=== PATIENT | male | born 1985 | race Caucasian/White ===

== ENCOUNTER 2018-11-27 22:03 | Inpatient (IN) | payer MEDICARE, OTHER ==
[~2018-11-27] VITALS: Ht 165.1 cm; Wt 97.1 kg
[~2018-11-27 22:03] MED LIST: ACET500T68 PO; ARIP30TA4 PO; BENZ2TAB5 PO; CLON2TAB9 PO; DIVA-53 PO; GABA600T7 PO; LOXA10CA PO
[2018-11-27] MEDS ORDERED: IV NORMAL SALINE 1000ML BAG 1,000 ML IV ONE (22:30)
[2018-11-27] MEDS ORDERED: DIPHTH,PERTUSS(ACELL),TET TOX 0.5 ML DISP.SYRIN. VAX IM ONE (22:45)
[2018-11-27 22:55] LABS: BASO # 0.1 x10^3/uL (0.0-0.2); BASO % 0 % (0-3); EOS % 0 % (0-3); HEMATOCRIT 47.7 % (39.0-53.0); HEMOGLOBIN 15.8 g/dL (13.0-17.5); LYMPH # 1.3 x10^3/uL (1.0-4.8); LYMPH % 5 % (24-48); MEAN CORPUSCULAR HEMOGLOBIN 30 pg (25-35); MEAN CORPUSCULAR HGB CONC 33 g/dL (31-37); MEAN CORPUSCULAR VOLUME 89 fL (79-100); MONO # 1.5 x10^3/uL (0.0-1.1); MONO % 6 % (0-9); NEUT # 22.7 x10^3uL (1.8-7.7); NEUT % 89 % (31-73); PLATELET COUNT 289 x10^3/uL (140-400); RED BLOOD COUNT 5.33 x10^6/uL (4.30-5.70); RED CELL DISTRIBUTION WIDTH 13.6 % (11.5-14.5); WHITE BLOOD COUNT 25.6 x10^3/uL (4.0-11.0)
[2018-11-27 23:05] LABS: PROTHROMBIN TIME PATIENT 13.3 SEC (11.7-14.0)
[2018-11-27 23:08] LABS: CALCIUM 9.3 mg/dL (8.5-10.1); CREATININE 1.8 mg/dL (0.7-1.3); GFR 43.4; POTASSIUM 3.4 mmol/L (3.5-5.1)
[2018-11-27 23:15] LABS: % BANDS 11 % (0-9); % LYMPHS 6 % (24-48); % MONOS 2 % (0-10); % SEGS 81 % (35-66); PLT ESTIMATE ADEQUATE (ADEQUATE)
[2018-11-27 23:25] LABS: MAGNESIUM 2.4 mg/dL (1.8-2.4); TOTAL BILIRUBIN 0.7 mg/dL (0.2-1.0)
--- NOTE | 2018-11-27 23:34 | RAD ---
CT scan of the head without contrast 11/27/2018 Clinical History: Head trauma. Altered mental status. Technique: Unenhanced, contiguous, 5 mm axial sections were obtained through the head. One or more of the following individualized dose reduction techniques were utilized for this study: 1. Automated exposure control. 2. Adjustment of the mA and/or kV according to patient size. 3. Use of iterative reconstruction technique. Findings: The ventricles and sulci are within normal limits in size and configuration. No acute parenchymal abnormality is seen. No extra-axial fluid collection is noted. No skull fracture is seen. Impression: No acute intracranial abnormality is seen. CT scan of the cervical spine without contrast 11/27/2018 Clinical history: Neck injury. Technique: Unenhanced, contiguous, 0.625 mm axial sections were obtained through the cervical spine. Axial, coronal and sagittal reconstructed images were obtained. One or more of the following individualized dose reduction techniques were utilized for this study: 1. Automated exposure control. 2. Adjustment of the mA and/or kV according to patient size. 3. Use of iterative reconstruction technique. Findings: Sagittal and coronal reconstructed images demonstrate minimal lateral curvature of the cervical spine, convex to the left. There is straightening of the normal cervical lordosis. Degenerative changes consisting of disc space narrowing, vertebral endplate sclerosis and mild anterior vertebral body osteophyte formation are seen involving the C5-6 disc space. No fracture or subluxation of the cervical vertebrae is seen. Degenerative changes are seen involving the uncovertebral and facet joints bilaterally. Impression: No fracture or subluxation of the cervical vertebra is identified. Electronically signed by: Oswaldo Ortiz MD (11/27/2018 11:31 PM) [id number]
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
[2018-11-27 23:42] LABS: BILIRUBIN,URINE NEGATIVE (NEG); CLARITY,URINE CLEAR; COLOR,URINE YELLOW; NITRITE,URINE NEGATIVE (NEG); PROTEIN,URINE 100 mg/dL (NEG-TRACE); UROBILINOGEN,URINE 0.2 mg/dL (0.2 mg/dL)
[2018-11-27] MEDS ORDERED: ASPIRIN CHEWABLE 81 MG TABLET. PO ONE (23:45)
[2018-11-27 23:49] LABS: AMPHETAMINE/METHAMPHETAMINE NEG (NEG); BACTERIA,URINE 0 /HPF (0-FEW); BARBITURATES NEG (NEG); BENZODIAZEPINES POS (NEG); CANNABINOIDS NEG (NEG); COCAINE NEG (NEG); METHADONE NEG (NEG); OPIATES NEG (NEG); PHENCYCLIDINE NEG (NEG); SQUAMOUS EPITHELIAL CELL,UR MOD /LPF
[2018-11-27 23:50] LABS: AMORPHOUS SEDIMENT,UR PRESENT /HPF; HYALINE CASTS, URINE MODERATE /HPF
[2018-11-28] VITALS (25 sets, daily range): BP systolic 81–149; BP diastolic 49–94
[2018-11-28] MEDS ORDERED: PIPERACILLIN/TAZOBACTAM 3.375 GM in IV NORMAL SALINE 50ML 50 ML IV ONE (00:15)
--- NOTE | 2018-11-28 00:22 | RAD ---
EXAM: AP View of the chest DATE: 11/27/2018 10:51 PM INDICATION: Altered mental status COMPARISON: No Prior FINDINGS: The heart is not enlarged. Mediastinal and hilar contours are normal. No focal parenchymal airspace opacity. No pleural effusion or pneumothorax. IMPRESSION: 1. No evidence for acute cardiopulmonary process. Electronically signed by: Larry Shine MD (11/28/2018 12:19 AM) [facility]
[2018-11-28] MEDS ORDERED: PIP/TAZO PER PHARMACY MC PRN (01:15)
[2018-11-28] MEDS ORDERED: IV NORMAL SALINE 1000ML BAG 1,000 ML IV ONE ×2 (01:15)
[2018-11-28] MEDS ORDERED: AMLO10TA8 PO (02:51)
[2018-11-28] MEDS ORDERED: LURA80TA PO (02:51)
[2018-11-28] MEDS ORDERED: CLON0.5T11 PO (02:51)
[2018-11-28] MEDS ORDERED: GABA600T7 PO (02:51)
[2018-11-28] MEDS ORDERED: LISI-338 PO (02:51)
[2018-11-28] MEDS ORDERED: LORA0.5T PO (02:51)
[2018-11-28] MEDS ORDERED: CLON0.1T PO (02:54)
[2018-11-28] MEDS ORDERED: LACT20SO PO (02:54)
[2018-11-28 03:03] LABS: BASO # 0.2 x10^3/uL (0.0-0.2); BASO % 1 % (0-3); EOS % 0 % (0-3); HEMATOCRIT 44.2 % (39.0-53.0); LYMPH # 3.1 x10^3/uL (1.0-4.8); LYMPH % 15 % (24-48); MEAN CORPUSCULAR HEMOGLOBIN 29 pg (25-35); MEAN CORPUSCULAR HGB CONC 32 g/dL (31-37); MEAN CORPUSCULAR VOLUME 91 fL (79-100); MONO # 1.6 x10^3/uL (0.0-1.1); MONO % 8 % (0-9); NEUT # 15.1 x10^3uL (1.8-7.7); NEUT % 76 % (31-73); PLATELET COUNT 264 x10^3/uL (140-400); RED BLOOD COUNT 4.88 x10^6/uL (4.30-5.70); RED CELL DISTRIBUTION WIDTH 13.7 % (11.5-14.5); WHITE BLOOD COUNT 19.9 x10^3/uL (4.0-11.0)
--- NOTE | 2018-11-28 05:14 | EKG ---
[facility] [address] [place] [id number] Test Date: 2018-11-27 Test Time: 23:23:57 Pat Name: STEFF SCHAEFFER Department: Room: 102 1 Gender: M Real Estate Rental Agent: : [id number] Requested By: MELVIN KUMAR Order Number: [id number] Reading MD: Greyson Moore MD Measurements Intervals [place] Rate: 120 P: 111 OR: 136 QRS: 53 QRSD: 84 T: 54 QT: 300 QTc: 428 Interpretive Statements SINUS TACHYCARDIA Electronically Signed On 11-28-2018 9:24:58 CDT by Greyson Moore MD
[2018-11-28] MEDS: PIPERACILLIN/TAZOBACTAM 3.375 GM in IV NORMAL SALINE 50ML 50 ML IV SCH ×3 (06:34→18:27)
[2018-11-28] MEDS ORDERED: ZIPRASIDONE IM 20 MG VIAL. IM ONE (06:35)
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
[2018-11-28] MEDS ORDERED: VANCOMYCIN PER PHARMACY MC PRN (12:30)
[2018-11-28] MEDS ORDERED: IV NORMAL SALINE 500ML BAG 500 ML IV PRN (12:30)
[2018-11-28] MEDS ORDERED: NOREPINEPHRIN 8MG/250ML PREMIX 250 ML IV PRN (12:30)
[2018-11-28] MEDS ORDERED: VANCOMYCIN 2 GM in IV NORMAL SALINE 500ML BAG 500 ML IV ONE (13:00)
[2018-11-28 13:07] LABS: PROTHROMBIN TIME PATIENT 12.8 SEC (11.7-14.0)
[2018-11-28 13:25] LABS: FIBRINOGEN 325 mg/dL (200-440)
[2018-11-28 13:28] LABS: D-DIMER < 0.27 ug/mlFEU (0.00-0.50)
[2018-11-28] MEDS: LACTOBACILLUS RHAMNOSUS GG 1 CAPSULE. PO SCH ×2 (14:02→21:00)
[2018-11-28] MEDS: IV NORMAL SALINE 1000ML BAG 1,000 ML IV SCH ×2 (14:26→14:29)
--- NOTE | 2018-11-28 14:30 | PDOC ---
Infectious Disease Note Subjective: Subjective Pt seen and examined ROS: ROS Negative except for above. Vital Signs: Vital Signs Vital Signs Date Time Temp Pulse Resp B/P (MAP) Pulse Ox O2 Delivery O2 Flow Rate FiO2 11/28/18 14:00 101 14 114/69 (84) 98 Room Air 11/28/18 05:00 2.0 11/28/18 04:00 98.2 98.2 Medications: Inpatient Meds: Current Medications Medications (Trade) Dose Ordered Sig/Manuel Start Time Stop Time Status Last Admin Dose Admin Aspirin (Children'S Aspirin) 324 mg 1X ONCE 11/27/18 23:45 11/27/18 23:46 DC 11/28/18 00:00 324 MG Cefazolin Sodium 50 ml @ 100 mls/hr 1X ONCE 11/27/18 22:45 11/27/18 23:14 DC 11/28/18 00:04 100 MLS/HR Diphtheria/ Tetanus/Acell Pertussis (Boostrix) 0.5 ml ONCE ONCE 11/27/18 22:45 11/27/18 22:46 DC 11/28/18 00:01 0.5 ML Dobutamine HCl/ Dextrose 250 ml @ 0 mls/hr CONT PRN 11/28/18 12:30 Lactobacillus Rhamnosus (Culturelle) 1 cap BID 11/28/18 10:00 11/28/18 14:02 1 CAP Lorazepam (Ativan) 2 mg PRN Q4HRS PRN 11/27/18 23:45 11/28/18 09:47 2 MG Norepinephrine Bitartrate 250 ml @ 0 mls/hr CONT PRN 11/28/18 12:30 Piperacillin Sod/ Tazobactam Sod (Zosyn Per Pharmacy) 1 each PRN DAILY PRN 11/28/18 01:15 Piperacillin Sod/ Tazobactam Sod 3.375 gm/Sodium Chloride 50 ml @ 100 mls/hr Q6HRS 11/28/18 06:00 11/28/18 12:09 100 MLS/HR Sodium Chloride 500 ml @ 1,000 mls/hr PRN Q30MIN PRN 11/28/18 12:30 Vancomycin HCl (Vanco Per Pharmacy) 1 each PRN DAILY PRN 11/28/18 12:30 11/28/18 14:09 1 EACH Vancomycin HCl (Vancomycin Trough Level) 1 each 1X ONCE 11/29/18 13:30 11/29/18 13:31 Vancomycin HCl 1.5 gm/Sodium Chloride 500 ml @ 250 mls/hr Q12H 11/29/18 02:00 Vancomycin HCl 2 gm/Sodium Chloride 500 ml @ 250 mls/hr 1X ONCE 11/28/18 13:00 11/28/18 14:59 11/28/18 13:47 250 MLS/HR Ziprasidone (Geodon Im) 20 mg STK-MED ONCE 11/28/18 06:35 11/28/18 06:36 DC Labs: Lab Laboratory Tests Test 11/27/18 22:40 11/27/18 23:30 11/28/18 02:50 11/28/18 09:30 White Blood Count 25.6 x10^3/uL (4.0-11.0) 19.9 x10^3/uL (4.0-11.0) Red Blood Count 5.33 x10^6/uL (4.30-5.70) 4.88 x10^6/uL (4.30-5.70) Hemoglobin 15.8 g/dL (13.0-17.5) 14.0 g/dL (13.0-17.5) Hematocrit 47.7 % (39.0-53.0) 44.2 % (39.0-53.0) Mean Corpuscular Volume 89 fL (79-100) 91 fL (79-100) Mean Corpuscular Hemoglobin 30 pg (25-35) 29 pg (25-35) Mean Corpuscular Hemoglobin Concent 33 g/dL (31-37) 32 g/dL (31-37) Red Cell Distribution Width 13.6 % (11.5-14.5) 13.7 % (11.5-14.5) Platelet Count 289 x10^3/uL (140-400) 264 x10^3/uL (140-400) Neutrophils (%) (Auto) 89 % (31-73) 76 % (31-73) Lymphocytes (%) (Auto) 5 % (24-48) 15 % (24-48) Monocytes (%) (Auto) 6 % (0-9) 8 % (0-9) Eosinophils (%) (Auto) 0 % (0-3) 0 % (0-3) Basophils (%) (Auto) 0 % (0-3) 1 % (0-3) Neutrophils # (Auto) 22.7 x10^3uL (1.8-7.7) 15.1 x10^3uL (1.8-7.7) Lymphocytes # (Auto) 1.3 x10^3/uL (1.0-4.8) 3.1 x10^3/uL (1.0-4.8) Monocytes # (Auto) 1.5 x10^3/uL (0.0-1.1) 1.6 x10^3/uL (0.0-1.1) Eosinophils # (Auto) 0.0 x10^3/uL (0.0-0.7) 0.0 x10^3/uL (0.0-0.7) Basophils # (Auto) 0.1 x10^3/uL (0.0-0.2) 0.2 x10^3/uL (0.0-0.2) Segmented Neutrophils % 81 % (35-66) Band Neutrophils % 11 % (0-9) Lymphocytes % 6 % (24-48) Monocytes % 2 % (0-10) Platelet Estimate Adequate (ADEQUATE) Prothrombin Time 13.3 SEC (11.7-14.0) 12.8 SEC (11.7-14.0) Prothromb Time International Ratio 1.0 (0.8-1.1) 1.0 (0.8-1.1) Sodium Level 143 mmol/L (136-145) Potassium Level 3.4 mmol/L (3.5-5.1) Chloride Level 105 mmol/L (98-107) Carbon Dioxide Level 23 mmol/L (21-32) Anion Gap 15 (6-14) Blood Urea Nitrogen 18 mg/dL (8-26) Creatinine 1.8 mg/dL (0.7-1.3) Estimated GFR (Cockcroft-Gault) 43.4 BUN/Creatinine Ratio 10 (6-20) Glucose Level 168 mg/dL (70-99) Lactic Acid Level 4.4 mmol/L (0.4-2.0) 1.2 mmol/L (0.4-2.0) Calcium Level 9.3 mg/dL (8.5-10.1) Magnesium Level 2.4 mg/dL (1.8-2.4) Total Bilirubin 0.7 mg/dL (0.2-1.0) Aspartate Amino Transf (AST/SGOT) 20 U/L (15-37) Alanine Aminotransferase (ALT/SGPT) 28 U/L (16-63) Alkaline Phosphatase 61 U/L (46-116) Troponin I Quantitative 0.065 ng/mL (0.000-0.055) ZI-Ptp-G-Type Natriuretic Peptide 35 pg/mL (0-124) Total Protein 8.0 g/dL (6.4-8.2) Albumin 4.0 g/dL (3.4-5.0) Albumin/Globulin Ratio 1.0 (1.0-1.7) Ethyl Alcohol Level < 10 mg/dL (0-10) Urine Collection Type Unknown Urine Color Yellow Urine Clarity Clear Urine pH 6.0 Urine Specific [place] 1.025 Urine Protein 100 mg/dL (NEG-TRACE) Urine Glucose (UA) Negative mg/dL (NEG) Urine Ketones (Stick) Trace mg/dL (NEG) Urine Blood Large (NEG) Urine Nitrite Negative (NEG) Urine Bilirubin Negative (NEG) Urine Urobilinogen Dipstick 0.2 mg/dL (0.2 mg/dL) Urine Leukocyte Esterase Negative (NEG) Urine RBC 3-5 /HPF (0-2) Urine WBC 1-4 /HPF (0-4) Urine Squamous Epithelial Cells Mod /LPF Urine Amorphous Sediment Present /HPF Urine Bacteria 0 /HPF (0-FEW) Urine Hyaline Casts Moderate /HPF Urine Mucus Mod /LPF Urine Opiates Screen Neg (NEG) Urine Methadone Screen Neg (NEG) Urine Barbiturates Neg (NEG) Urine Phencyclidine Screen Neg (NEG) Urine Amphetamine/Methamphetamine Neg (NEG) Urine Benzodiazepines Screen Pos (NEG) Urine Cocaine Screen Neg (NEG) Urine Cannabinoids Screen Neg (NEG) Urine Ethyl Alcohol Neg (NEG) Thyroid Stimulating Hormone (TSH) 0.517 uIU/mL (0.358-3.74) Activated Partial Thromboplast Time 33 SEC (24-38) Fibrinogen 325 mg/dL (200-440) D-Dimer (Xiomara) < 0.27 ug/mlFEU Procalcitonin 0.22 ng/mL (0.00-0.10) Test 11/28/18 12:45 Lactic Acid Level 1.4 mmol/L (0.4-2.0) Objective: Assessment: Altered mental status Leucocytosis abdo pain Nausea Cognitive disability hematuria SUE Plan: Plan of Care cont Zosyn DC IV Vanc due to SUE CT abdo and pelvis f/u cults and labs in am cont supportive care Thank you KARIE JOSHI MD Nov 28, 2018 14:30
--- NOTE | 2018-11-28 15:08 | PDOC2 ---
GINNY PLUMMER ADDING MACHINE MECHANIC 11/28/18 1508: CARDIAC CONSULT DATE OF CONSULT Date of Consult DATE: 11/28/18 TIME: 14:48 REASON FOR CONSULT Reason for Consult: elevated troponin REFERRING PHYSICIAN Referring Physician: Fullbright SOURCE Source: Chart review HISTORY OF PRESENT ILLNESS HISTORY OF PRESENT ILLNESS This is a 33 yo male admitted for noted altered mental status. He lives in a long-term and has cognitive disability with autism and impulse disorder. His mentation changes was noted by filter tip inspector who called for the EMS. Does not speak much by baseline per chart review. No notation of respiratory distress nor CP. Presently he smiles but not talk and not in distress and in no discomfort. No noted cardiac history PAST MEDICAL HISTORY CENTRAL NERVOUS SYSTEM: Other (cognitive disability) GI: GERD, Other (hiatal hernia) Psych: Other (autism; impulsive disorder, ADHD) PAST SURGICAL HISTORY Past Surgical History: Other (unknown) FAMILY HISTORY Family History: Family History Unknown SOCIAL HISTORY Smoke: No ALCOHOL: none Drugs: None Lives: Friends (long-term) CURRENT MEDICATIONS CURRENT MEDICATIONS Current Medications Medications (Trade) Dose Ordered Sig/Manuel Route PRN Reason Start Time Stop Time Status Last Admin Dose Admin Sodium Chloride 1,000 ml @ 1,000 mls/hr 1X ONCE IV 11/27/18 22:30 11/27/18 23:29 DC 11/27/18 22:42 Cefazolin Sodium 50 ml @ 100 mls/hr 1X ONCE IV 11/27/18 22:45 11/27/18 23:14 DC 11/28/18 00:04 Diphtheria/ Tetanus/Acell Pertussis (Boostrix) 0.5 ml ONCE ONCE VAX IM 11/27/18 22:45 11/27/18 22:46 DC 11/28/18 00:01 Aspirin (Children'S Aspirin) 324 mg 1X ONCE PO 11/27/18 23:45 11/27/18 23:46 DC 11/28/18 00:00 Lorazepam (Ativan) 2 mg PRN Q4HRS PRN IV ANXIETY / AGITATION 11/27/18 23:45 11/28/18 09:47 Piperacillin Sod/ Tazobactam Sod 3.375 gm/Sodium Chloride 50 ml @ 100 mls/hr 1X ONCE IV 11/28/18 00:15 11/28/18 00:44 DC 11/28/18 01:17 Sodium Chloride 1,000 ml @ 1,000 mls/hr 1X ONCE IV 11/28/18 00:00 11/28/18 00:59 DC 11/27/18 23:57 Sodium Chloride 1,000 ml @ 1,000 mls/hr 1X ONCE IV 11/28/18 01:15 11/28/18 02:14 DC 11/28/18 01:55 Piperacillin Sod/ Tazobactam Sod 3.375 gm/Sodium Chloride 50 ml @ 100 mls/hr Q6HRS IV 11/28/18 06:00 11/28/18 12:09 Lactobacillus Rhamnosus (Culturelle) 1 cap BID PO 11/28/18 10:00 11/28/18 14:02 Vancomycin HCl (Vanco Per Pharmacy) 1 each PRN DAILY PRN MC SEE COMMENTS 11/28/18 12:30 11/28/18 14:32 DC 11/28/18 14:09 Sodium Chloride 1,000 ml @ 1,860 mls/hr Q33M IV 11/28/18 12:45 11/28/18 13:45 DC 11/28/18 14:29 Vancomycin HCl 2 gm/Sodium Chloride 500 ml @ 250 mls/hr 1X ONCE IV 11/28/18 13:00 11/28/18 14:59 11/28/18 13:47 ALLERGIES ALLERGIES: Coded Allergies: No Known Drug Allergies (Unverified , 03/26/14) ROS Review of System unreliable, does not speak PHYSICAL EXAM General: Alert, No acute distress HEENT: Atraumatic, Mucous membr. moist/pink Lungs: Clear to auscultation, Normal air movement Heart: Regular rate (SR/ST), Normal S1, Normal S2, No murmurs Abdomen: Soft, No tenderness Extremities: No cyanosis, No edema Skin: No breakdown, No significant lesion Neuro: Normal speech, Sensation intact Psych/Mental Status: Other (smiling, pleasant currently) MUSCULOSKELETAL: Full range of motion without pain VITALS VITALS Vital Signs Date Time Temp Pulse Resp B/P (MAP) Pulse Ox O2 Delivery O2 Flow Rate FiO2 11/28/18 14:00 101 14 114/69 (84) 98 Room Air 11/28/18 05:00 2.0 11/28/18 04:00 98.2 98.2 LABS Lab: Laboratory Tests Test 11/27/18 22:40 11/27/18 23:30 11/28/18 02:50 11/28/18 09:30 White Blood Count 25.6 x10^3/uL (4.0-11.0) 19.9 x10^3/uL (4.0-11.0) Red Blood Count 5.33 x10^6/uL (4.30-5.70) 4.88 x10^6/uL (4.30-5.70) Hemoglobin 15.8 g/dL (13.0-17.5) 14.0 g/dL (13.0-17.5) Hematocrit 47.7 % (39.0-53.0) 44.2 % (39.0-53.0) Mean Corpuscular Volume 89 fL (79-100) 91 fL (79-100) Mean Corpuscular Hemoglobin 30 pg (25-35) 29 pg (25-35) Mean Corpuscular Hemoglobin Concent 33 g/dL (31-37) 32 g/dL (31-37) Red Cell Distribution Width 13.6 % (11.5-14.5) 13.7 % (11.5-14.5) Platelet Count 289 x10^3/uL (140-400) 264 x10^3/uL (140-400) Neutrophils (%) (Auto) 89 % (31-73) 76 % (31-73) Lymphocytes (%) (Auto) 5 % (24-48) 15 % (24-48) Monocytes (%) (Auto) 6 % (0-9) 8 % (0-9) Eosinophils (%) (Auto) 0 % (0-3) 0 % (0-3) Basophils (%) (Auto) 0 % (0-3) 1 % (0-3) Neutrophils # (Auto) 22.7 x10^3uL (1.8-7.7) 15.1 x10^3uL (1.8-7.7) Lymphocytes # (Auto) 1.3 x10^3/uL (1.0-4.8) 3.1 x10^3/uL (1.0-4.8) Monocytes # (Auto) 1.5 x10^3/uL (0.0-1.1) 1.6 x10^3/uL (0.0-1.1) Eosinophils # (Auto) 0.0 x10^3/uL (0.0-0.7) 0.0 x10^3/uL (0.0-0.7) Basophils # (Auto) 0.1 x10^3/uL (0.0-0.2) 0.2 x10^3/uL (0.0-0.2) Segmented Neutrophils % 81 % (35-66) Band Neutrophils % 11 % (0-9) Lymphocytes % 6 % (24-48) Monocytes % 2 % (0-10) Platelet Estimate Adequate (ADEQUATE) Prothrombin Time 13.3 SEC (11.7-14.0) 12.8 SEC (11.7-14.0) Prothromb Time International Ratio 1.0 (0.8-1.1) 1.0 (0.8-1.1) Sodium Level 143 mmol/L (136-145) Potassium Level 3.4 mmol/L (3.5-5.1) Chloride Level 105 mmol/L (98-107) Carbon Dioxide Level 23 mmol/L (21-32) Anion Gap 15 (6-14) Blood Urea Nitrogen 18 mg/dL (8-26) Creatinine 1.8 mg/dL (0.7-1.3) Estimated GFR (Cockcroft-Gault) 43.4 BUN/Creatinine Ratio 10 (6-20) Glucose Level 168 mg/dL (70-99) Lactic Acid Level 4.4 mmol/L (0.4-2.0) 1.2 mmol/L (0.4-2.0) Calcium Level 9.3 mg/dL (8.5-10.1) Magnesium Level 2.4 mg/dL (1.8-2.4) Total Bilirubin 0.7 mg/dL (0.2-1.0) Aspartate Amino Transf (AST/SGOT) 20 U/L (15-37) Alanine Aminotransferase (ALT/SGPT) 28 U/L (16-63) Alkaline Phosphatase 61 U/L (46-116) Troponin I Quantitative 0.065 ng/mL (0.000-0.055) XD-Zey-G-Type Natriuretic Peptide 35 pg/mL (0-124) Total Protein 8.0 g/dL (6.4-8.2) Albumin 4.0 g/dL (3.4-5.0) Albumin/Globulin Ratio 1.0 (1.0-1.7) Ethyl Alcohol Level < 10 mg/dL (0-10) Urine Collection Type Unknown Urine Color Yellow Urine Clarity Clear Urine pH 6.0 Urine Specific Udell 1.025 Urine Protein 100 mg/dL (NEG-TRACE) Urine Glucose (UA) Negative mg/dL (NEG) Urine Ketones (Stick) Trace mg/dL (NEG) Urine Blood Large (NEG) Urine Nitrite Negative (NEG) Urine Bilirubin Negative (NEG) Urine Urobilinogen Dipstick 0.2 mg/dL (0.2 mg/dL) Urine Leukocyte Esterase Negative (NEG) Urine RBC 3-5 /HPF (0-2) Urine WBC 1-4 /HPF (0-4) Urine Squamous Epithelial Cells Mod /LPF Urine Amorphous Sediment Present /HPF Urine Bacteria 0 /HPF (0-FEW) Urine Hyaline Casts Moderate /HPF Urine Mucus Mod /LPF Urine Opiates Screen Neg (NEG) Urine Methadone Screen Neg (NEG) Urine Barbiturates Neg (NEG) Urine Phencyclidine Screen Neg (NEG) Urine Amphetamine/Methamphetamine Neg (NEG) Urine Benzodiazepines Screen Pos (NEG) Urine Cocaine Screen Neg (NEG) Urine Cannabinoids Screen Neg (NEG) Urine Ethyl Alcohol Neg (NEG) Thyroid Stimulating Hormone (TSH) 0.517 uIU/mL (0.358-3.74) Activated Partial Thromboplast Time 33 SEC (24-38) Fibrinogen 325 mg/dL (200-440) D-Dimer (Xiomara) < 0.27 ug/mlFEU Procalcitonin 0.22 ng/mL (0.00-0.10) Test 11/28/18 12:45 Lactic Acid Level 1.4 mmol/L (0.4-2.0) ASSESSMENT/PLAN ASSESSMENT/PLAN 1. Sepsis with shock: unknown source. BP better 2. SUE 3. Mild hypokalemia 4. Elevated troponin: initial at mid at 0.06, demand mediated due to above. No cardiac symptoms. 5. Metabolic encephalopathy with Cognitive disability/autism/impulsive disorder 6. Obesity 7. Trauma: punch windows with hand with noted laceration/abrasion to hands. Recommendations 1. TTE if pt allows, BMP and Mg. IVF 2. Antibiotics per ID 3. Supportive care. DEMETRIO STOCKTON MD 11/28/18 1517: CARDIAC CONSULT ASSESSMENT/PLAN ASSESSMENT/PLAN Pt. seen and examined. Agree with above PLY SPLICER note. Supportive care. Thanks. GINNY PLUMMER APRN Nov 28, 2018 15:08 DEMETRIO STOCKTON MD Nov 28, 2018 15:17
[2018-11-28 15:51] LABS: CHOLESTEROL/HDL RATIO 4.3; CREATININE 1.2 mg/dL (0.7-1.3); GFR 69.3; MAGNESIUM 2.4 mg/dL (1.8-2.4); POTASSIUM 4.7 mmol/L (3.5-5.1)
--- NOTE | 2018-11-28 16:25 | CARD ---
MR#: [id number] Date of Study: 11/28/2018 Ordering Physician: GINNY PLUMMER, Referring Physician: ANÍBAL VELIZ Tech: Maki Ashlisajose APPROVED REPORT EXAM: Two-dimensional and M-mode echocardiogram with Doppler and color Doppler. Other Information Quality : GoodHR: 97bpm Technically limited study due to noncompliant patient INDICATION Dyspnea 2D DIMENSIONS RVDd3.1 (2.9-3.5cm)Left Atrium(2D)4.0 (1.6-4.0cm) IVSd1.2 (0.7-1.1cm)Aortic Root(2D)2.8 (2.0-3.7cm) LVDd4.4 (3.9-5.9cm)LVOT Diameter2.0 (1.8-2.4cm) PWd0.9 (0.7-1.1cm)LVDs2.6 (2.5-4.0cm) FS (%) 40.5 %SV62.1 ml LVEF(%)71.5 (>50%) Aortic Valve AoV Peak Dwayne.110.5cm/sAoV VTI19.1cm AO Peak GR.4.9mmHgLVOT VTI 17.72cm AO Mean GR.3mmHg Mitral Valve MV E Lbnodvxo50.7cm/sMV DECEL LNTF360go MV A Hevobgzl60.5cm/sE/A Ratio1.8 TDI Lateral E' P. V12.47cm/sMedial E' P. V7.42cm/s E/Lateral E'6.9E/Medial E'11.5 Tricuspid Valve TR P. Zjvwhrrd240rg/sRAP CIANISES9zaGj TR Peak Gr.63uwNzTQMB76uxQe Pulmonary Vein S1 Exagnikv67.1cm/sS2 Xqrpagnq39.81cm/s D2 Zivcxpwx52.8cm/s LEFT VENTRICLE The left ventricle is normal size. There is borderline to mild concentric left ventricular hypertroph y. The left ventricular systolic function is normal. The Ejection Fraction is 60-65%. There is normal LV segmental wall motion. The left ventricular diastolic function and filling is normal for age. RIGHT VENTRICLE The right ventricle is normal size. There is normal right ventricular wall thickness. The right ventr icular systolic function is normal. ATRIA The left atrium size is normal. The right atrium size is normal. The interatrial septum is intact wit h no evidence for an atrial septal defect or patent foramen ovale as noted on 2-D or Doppler imaging. AORTIC VALVE The aortic valve is normal in structure and function. Doppler and Color Flow revealed no significant aortic regurgitation. There is no significant aortic valvular stenosis. MITRAL VALVE The mitral valve is normal in structure and function. There is no evidence of mitral valve prolapse. There is no mitral valve stenosis. Doppler and Color-flow revealed trace mitral regurgitation. TRICUSPID VALVE The tricuspid valve is normal in structure and function. Doppler and Color Flow revealed trace tricus pid regurgitation with an estimated PAP of 37 mmHg. There is no tricuspid valve stenosis. PULMONIC VALVE The pulmonary valve is normal in structure and function. Doppler and Color Flow revealed trace pulmon ic valvular regurgitation. GREAT VESSELS The aortic root is normal in size. The IVC was not visualized. PERICARDIAL EFFUSION There is no evidence of significant pericardial effusion. Critical Notification Critical Value: No <Conclusion> The left ventricular systolic function is normal. The Ejection Fraction is 60-65%. There is normal LV segmental wall motion. Trace mitral regurgitation. Trace tricuspid regurgitation with an estimated PAP of 37 mmHg. There is no evidence of significant pericardial effusion. Signed by : Colton Lazo, Electronically Approved : 11/28/2018 16:24:37
--- NOTE | 2018-11-28 16:34 | PDOC2 ---
NEUROLOGY CONSULT Date of Admission Date of Admission DATE: 11/28/18 TIME: 16:13 Reason for Consult Reason for Consult: IMPRESSION: Metabolic encephalopathy. Lactic acidosis. Leukocytosis Behavior problems. Explosive behavior. Cognitive disability. Impulsive disorders. Autism. ADHD. Obesity. RECOMMENDATIONS/PLAN: Treat medical diseases. Please consult ID for leukocytosis. Seroquel 12.5 mg daily. Lab: see orders. HISTORY OF THE PRESENT ILLNESS: This is a 33-year-old male patient with history of cognitive disability, behavior problems, autism was found down naked in the common area in custodial on 11/27/18. He was noted altered mental status changes as well. His mentation changes was noted by air motor repairer who called for the EMS. No notation of respiratory distress nor CP. He is unable to provide information only speaks "yes" or "no" at the present time. PAST MEDICAL HISTORY CENTRAL NERVOUS SYSTEM: Other (cognitive disability) GI: GERD, Other (hiatal hernia) Psych: Other (autism; impulsive disorder, ADHD) PAST SURGICAL HISTORY No major surgery recently. FAMILY HISTORY Unknown SOCIAL HISTORY Smoke: No ALCOHOL: none Drugs: None Lives: [facility] (custodial) ALLERGY: Unknown MEDICATIONS: Refer to [facility] REVIEW OF SYSTEMS: Constitutional: Obesity. Head: No recent traumatic brain or head injury. Skin: No edema. Eyes: No vision loss or color blindness. Nose: No bleeding or purulent discharges. Hearing: No hearing decrease. The rest is unknown. PHYSICAL EXAMINATION: General appearance is having explosive behavior. HEENT: Normocephalic and nontraumatic. Eyes, nose, ears, and throat are unremarkable. Neck is supple. No lymphadenopathy. No crepitus. Cardiovascular: S1, S2, regular rate and rhythm. Pulmonary: Clear to auscultation bilaterally. Abdomen: Bowel sounds are positive. Abdomen is soft, nontender, and nondistended. Extremities: No rash, or edema. No restriction of range of motion NEUROLOGICAL EXAMINATION: Awake. Exposes his body pretends naked. Not cooperative. Not follow commands. Not oriented to time, place and person. Not talks. PERRL. EOMI. CN: no focal findings. Muscle tone: within normal. Muscle strength: 5 DTR: 2 Plantar reflex: Flexor response bilaterally Gait: not examined in bed. Sensory exam: withdraw response to stimuli. No acute cerebellar signs elicited. F-T-N test not performed due to not follow commands. Current Medications Current Medications Current Medications Sodium Chloride 1,000 ml @ 1,000 mls/hr 1X ONCE IV Last administered on at 22:42; Start 11/27/18 at 22:30; Stop 11/27/18 at 23:29; Status DC Cefazolin Sodium 50 ml @ 100 mls/hr 1X ONCE IV Last administered on at 00:04; Start 11/27/18 at 22:45; Stop 11/27/18 at 23:14; Status DC Diphtheria/ Tetanus/Acell Pertussis (Boostrix) 0.5 ml ONCE ONCE VAX IM Last administered on 11/28/18at 00:01; Start 11/27/18 at 22:45; Stop 11/27/18 at 22:46 ; Status DC Aspirin (Children'S Aspirin) 324 mg 1X ONCE PO Last administered on 11/28/18at 00:00; Start 11/27/18 at 23:45; Stop 11/27/18 at 23:46; Status DC Lorazepam (Ativan) 2 mg PRN Q4HRS PRN IV ANXIETY / AGITATION Last administered on 11/28/18at 15:43; Start 11/27/18 at 23:45 Piperacillin Sod/ Tazobactam Sod 3.375 gm/Sodium Chloride 50 ml @ 100 mls/hr 1X ONCE IV Last administered on 11/28/18at 01:17; Start 11/28/18 at 00:15; Stop 11/28/18 at 00:44; Status DC Sodium Chloride 1,000 ml @ 1,000 mls/hr 1X ONCE IV Last administered on at 23:57; Start 11/28/18 at 00:00; Stop 11/28/18 at 00:59; Status DC Sodium Chloride 1,000 ml @ 1,000 mls/hr 1X ONCE IV Last administered on at 01:55; Start 11/28/18 at 01:15; Stop 11/28/18 at 02:14; Status DC Piperacillin Sod/ Tazobactam Sod (Zosyn Per Pharmacy) 1 each PRN DAILY PRN MC SEE COMMENTS; Start 11/28/18 at 01:15 Piperacillin Sod/ Tazobactam Sod 3.375 gm/Sodium Chloride 50 ml @ 100 mls/hr Q6HRS IV Last administered on 11/28/18at 12:09; Start 11/28/18 at 06:00 Ziprasidone (Geodon Im) 20 mg STK-MED ONCE IM ; Start 11/28/18 at 06:35; Stop at 06:36; Status DC Lactobacillus Rhamnosus (Culturelle) 1 cap BID PO Last administered on at 14:02; Start 11/28/18 at 10:00 Vancomycin HCl (Vanco Per Pharmacy) 1 each PRN DAILY PRN MC SEE COMMENTS Last administered on 11/28/18at 14:09; Start 11/28/18 at 12:30; Stop 11/28/18 at 14:32 ; Status DC Sodium Chloride 1,000 ml @ 1,860 mls/hr Q33M IV Last administered on at 14:29; Start 11/28/18 at 12:45; Stop 11/28/18 at 13:45; Status DC Sodium Chloride 500 ml @ 1,000 mls/hr PRN Q30MIN PRN IV SEE COMMENTS; Start at 12:30 Norepinephrine Bitartrate 250 ml @ 0 mls/hr CONT PRN IV SEE I/O RECORD; Start 11/28/18 at 12:30 Dobutamine HCl/ Dextrose 250 ml @ 0 mls/hr CONT PRN IV SEE I/O RECORD; Start at 12:30 Vancomycin HCl 2 gm/Sodium Chloride 500 ml @ 250 mls/hr 1X ONCE IV Last administered on 11/28/18at 13:47; Start 11/28/18 at 13:00; Stop 11/28/18 at 14:59 ; Status DC Vancomycin HCl 1.5 gm/Sodium Chloride 500 ml @ 250 mls/hr Q12H IV ; Start 11/29 at 02:00; Stop 11/29/18 at 02:00; Status DC Vancomycin HCl (Vancomycin Trough Level) 1 each 1X ONCE MC ; Start 11/29/18 at 13:30; Stop 11/29/18 at 13:30; Status DC Active Scripts Active Reported Lactulose 20 Gm/30 Ml Solution 10 Gm PO BID Clonidine Hcl 0.1 Mg Tablet 0.1 Mg PO BID Lorazepam 0.5 Mg Tablet 1 Tab PO BID Lisinopril 5 Mg Tablet 1 Tab PO DAILY Latuda (Lurasidone Hcl) 80 Mg Tablet 1 Tab PO QHS Gabapentin 600 Mg Tablet 600 Mg PO QID Clonazepam 0.5 Mg Tablet 1 Tab PO BID Amlodipine Besylate 10 Mg Tablet 10 Mg PO DAILY Clonazepam 2 Mg Tablet 2 Mg PO BID Acetaminophen 500 Mg Tablet 500 Mg PO Loxapine (Loxapine Succinate) 10 Mg Capsule 10 Mg PO Gabapentin 600 Mg Tablet 600 Mg PO TID Divalproex Sodium 500 Mg Tablet.dr 500 Mg PO DAILY Benztropine Mesylate 2 Mg Tablet 2 Mg PO DAILY Abilify (Aripiprazole) 30 Mg Tablet 30 Mg PO DAILY Allergies Allergies: Allergies Coded Allergies Type Severity Reaction Last Updated Verified No Known Drug Allergies 03/26/14 No ROS Review of System The patient denies any associated fevers, chills, headache, ear pain, rhinorrhea , sore throat, stiff neck, productive cough, chest pain, shortness of breath, back or flank pain, abdominal pain, nausea, vomiting, diarrhea, constipation, dysuria, rash, numbness, weakness, tingling, incontinence, difficulty ambulating, or diaphoresis. Physical Exam Physical Exam General: Well developed, well nourished, no acute distress, well appearing HEENT: Pupils equally round and reactive to light, EOMI, no discharge, normal conjunctiva Neck: Supple, no nuchal rigidity, no JVD, trachea midline, no tenderness Cardiac: RRR, no murmurs, no gallops, no rubs Chest/Lungs: CTAB, no wheeze, no rhonchi, no crackles Abdomen: soft, non-distended, no guarding, no peritoneal signs, non-tender Back: No tenderness Extremities: no edema, pulses intact, non-tender,capillary refill <3 sec bilateral upper and lower extremities, Neuro: Alert and oriented x 4, no focal deficits, normal speech Vitals Vitals: Vital Signs Date Time Temp Pulse Resp B/P (MAP) Pulse Ox O2 Delivery O2 Flow Rate FiO2 11/28/18 14:00 101 14 114/69 (84) 98 Room Air 11/28/18 05:00 2.0 11/28/18 04:00 98.2 98.2 Labs Labs Laboratory Tests Test 11/27/18 22:40 11/27/18 23:30 11/28/18 02:50 11/28/18 09:00 White Blood Count 25.6 x10^3/uL (4.0-11.0) 19.9 x10^3/uL (4.0-11.0) Red Blood Count 5.33 x10^6/uL (4.30-5.70) 4.88 x10^6/uL (4.30-5.70) Hemoglobin 15.8 g/dL (13.0-17.5) 14.0 g/dL (13.0-17.5) Hematocrit 47.7 % (39.0-53.0) 44.2 % (39.0-53.0) Mean Corpuscular Volume 89 fL (79-100) 91 fL (79-100) Mean Corpuscular Hemoglobin 30 pg (25-35) 29 pg (25-35) Mean Corpuscular Hemoglobin Concent 33 g/dL (31-37) 32 g/dL (31-37) Red Cell Distribution Width 13.6 % (11.5-14.5) 13.7 % (11.5-14.5) Platelet Count 289 x10^3/uL (140-400) 264 x10^3/uL (140-400) Neutrophils (%) (Auto) 89 % (31-73) 76 % (31-73) Lymphocytes (%) (Auto) 5 % (24-48) 15 % (24-48) Monocytes (%) (Auto) 6 % (0-9) 8 % (0-9) Eosinophils (%) (Auto) 0 % (0-3) 0 % (0-3) Basophils (%) (Auto) 0 % (0-3) 1 % (0-3) Neutrophils # (Auto) 22.7 x10^3uL (1.8-7.7) 15.1 x10^3uL (1.8-7.7) Lymphocytes # (Auto) 1.3 x10^3/uL (1.0-4.8) 3.1 x10^3/uL (1.0-4.8) Monocytes # (Auto) 1.5 x10^3/uL (0.0-1.1) 1.6 x10^3/uL (0.0-1.1) Eosinophils # (Auto) 0.0 x10^3/uL (0.0-0.7) 0.0 x10^3/uL (0.0-0.7) Basophils # (Auto) 0.1 x10^3/uL (0.0-0.2) 0.2 x10^3/uL (0.0-0.2) Segmented Neutrophils % 81 % (35-66) Band Neutrophils % 11 % (0-9) Lymphocytes % 6 % (24-48) Monocytes % 2 % (0-10) Platelet Estimate Adequate (ADEQUATE) Prothrombin Time 13.3 SEC (11.7-14.0) Prothromb Time International Ratio 1.0 (0.8-1.1) Sodium Level 143 mmol/L (136-145) 143 mmol/L (136-145) Potassium Level 3.4 mmol/L (3.5-5.1) 4.7 mmol/L (3.5-5.1) Chloride Level 105 mmol/L (98-107) 106 mmol/L (98-107) Carbon Dioxide Level 23 mmol/L (21-32) 23 mmol/L (21-32) Anion Gap 15 (6-14) 14 (6-14) Blood Urea Nitrogen 18 mg/dL (8-26) 12 mg/dL (8-26) Creatinine 1.8 mg/dL (0.7-1.3) 1.2 mg/dL (0.7-1.3) Estimated GFR (Cockcroft-Gault) 43.4 69.3 BUN/Creatinine Ratio 10 (6-20) Glucose Level 168 mg/dL (70-99) 95 mg/dL (70-99) Lactic Acid Level 4.4 mmol/L (0.4-2.0) 1.2 mmol/L (0.4-2.0) Calcium Level 9.3 mg/dL (8.5-10.1) 9.0 mg/dL (8.5-10.1) Magnesium Level 2.4 mg/dL (1.8-2.4) 2.4 mg/dL (1.8-2.4) Total Bilirubin 0.7 mg/dL (0.2-1.0) Aspartate Amino Transf (AST/SGOT) 20 U/L (15-37) Alanine Aminotransferase (ALT/SGPT) 28 U/L (16-63) Alkaline Phosphatase 61 U/L (46-116) Troponin I Quantitative 0.065 ng/mL (0.000-0.055) JC-Gnw-[id number]-Type Natriuretic Peptide 35 pg/mL (0-124) Total Protein 8.0 g/dL (6.4-8.2) Albumin 4.0 g/dL (3.4-5.0) Albumin/Globulin Ratio 1.0 (1.0-1.7) Ethyl Alcohol Level < 10 mg/dL (0-10) Urine Collection Type Unknown Urine Color Yellow Urine Clarity Clear Urine pH 6.0 Urine Specific Dolph 1.025 Urine Protein 100 mg/dL (NEG-TRACE) Urine Glucose (UA) Negative mg/dL (NEG) Urine Ketones (Stick) Trace mg/dL (NEG) Urine Blood Large (NEG) Urine Nitrite Negative (NEG) Urine Bilirubin Negative (NEG) Urine Urobilinogen Dipstick 0.2 mg/dL (0.2 mg/dL) Urine Leukocyte Esterase Negative (NEG) Urine RBC 3-5 /HPF (0-2) Urine WBC 1-4 /HPF (0-4) Urine Squamous Epithelial Cells Mod /LPF Urine Amorphous Sediment Present /HPF Urine Bacteria 0 /HPF (0-FEW) Urine Hyaline Casts Moderate /HPF Urine Mucus Mod /LPF Urine Opiates Screen Neg (NEG) Urine Methadone Screen Neg (NEG) Urine Barbiturates Neg (NEG) Urine Phencyclidine Screen Neg (NEG) Urine Amphetamine/Methamphetamine Neg (NEG) Urine Benzodiazepines Screen Pos (NEG) Urine Cocaine Screen Neg (NEG) Urine Cannabinoids Screen Neg (NEG) Urine Ethyl Alcohol Neg (NEG) Triglycerides Level 87 mg/dL (0-150) Cholesterol Level 158 mg/dL (0-200) LDL Cholesterol, Calculated 104 mg/dL (0-100) VLDL Cholesterol, Calculated 17 mg/dL (0-40) Non-HDL Cholesterol Calculated 121 mg/dL (0-129) HDL Cholesterol 37 mg/dL (40-60) Cholesterol/HDL Ratio 4.3 Thyroid Stimulating Hormone (TSH) 0.517 uIU/mL (0.358-3.74) Test 11/28/18 09:30 11/28/18 12:45 11/28/18 14:15 Prothrombin Time 12.8 SEC (11.7-14.0) Prothromb Time International Ratio 1.0 (0.8-1.1) Activated Partial Thromboplast Time 33 SEC (24-38) Fibrinogen 325 mg/dL (200-440) D-Dimer (Xiomara) < 0.27 ug/mlFEU Procalcitonin 0.22 ng/mL (0.00-0.10) Lactic Acid Level 1.4 mmol/L (0.4-2.0) Troponin I Quantitative 0.019 ng/mL (0.000-0.055) Laboratory Tests Test 11/27/18 22:40 11/27/18 23:30 11/28/18 02:50 11/28/18 09:00 White Blood Count 25.6 x10^3/uL (4.0-11.0) 19.9 x10^3/uL (4.0-11.0) Red Blood Count 5.33 x10^6/uL (4.30-5.70) 4.88 x10^6/uL (4.30-5.70) Hemoglobin 15.8 g/dL (13.0-17.5) 14.0 g/dL (13.0-17.5) Hematocrit 47.7 % (39.0-53.0) 44.2 % (39.0-53.0) Mean Corpuscular Volume 89 fL (79-100) 91 fL (79-100) Mean Corpuscular Hemoglobin 30 pg (25-35) 29 pg (25-35) Mean Corpuscular Hemoglobin Concent 33 g/dL (31-37) 32 g/dL (31-37) Red Cell Distribution Width 13.6 % (11.5-14.5) 13.7 % (11.5-14.5) Platelet Count 289 x10^3/uL (140-400) 264 x10^3/uL (140-400) Neutrophils (%) (Auto) 89 % (31-73) 76 % (31-73) Lymphocytes (%) (Auto) 5 % (24-48) 15 % (24-48) Monocytes (%) (Auto) 6 % (0-9) 8 % (0-9) Eosinophils (%) (Auto) 0 % (0-3) 0 % (0-3) Basophils (%) (Auto) 0 % (0-3) 1 % (0-3) Neutrophils # (Auto) 22.7 x10^3uL (1.8-7.7) 15.1 x10^3uL (1.8-7.7) Lymphocytes # (Auto) 1.3 x10^3/uL (1.0-4.8) 3.1 x10^3/uL (1.0-4.8) Monocytes # (Auto) 1.5 x10^3/uL (0.0-1.1) 1.6 x10^3/uL (0.0-1.1) Eosinophils # (Auto) 0.0 x10^3/uL (0.0-0.7) 0.0 x10^3/uL (0.0-0.7) Basophils # (Auto) 0.1 x10^3/uL (0.0-0.2) 0.2 x10^3/uL (0.0-0.2) Segmented Neutrophils % 81 % (35-66) Band Neutrophils % 11 % (0-9) Lymphocytes % 6 % (24-48) Monocytes % 2 % (0-10) Platelet Estimate Adequate (ADEQUATE) Prothrombin Time 13.3 SEC (11.7-14.0) Prothromb Time International Ratio 1.0 (0.8-1.1) Sodium Level 143 mmol/L (136-145) 143 mmol/L (136-145) Potassium Level 3.4 mmol/L (3.5-5.1) 4.7 mmol/L (3.5-5.1) Chloride Level 105 mmol/L (98-107) 106 mmol/L (98-107) Carbon Dioxide Level 23 mmol/L (21-32) 23 mmol/L (21-32) Anion Gap 15 (6-14) 14 (6-14) Blood Urea Nitrogen 18 mg/dL (8-26) 12 mg/dL (8-26) Creatinine 1.8 mg/dL (0.7-1.3) 1.2 mg/dL (0.7-1.3) Estimated GFR (Cockcroft-Gault) 43.4 69.3 BUN/Creatinine Ratio 10 (6-20) Glucose Level 168 mg/dL (70-99) 95 mg/dL (70-99) Lactic Acid Level 4.4 mmol/L (0.4-2.0) 1.2 mmol/L (0.4-2.0) Calcium Level 9.3 mg/dL (8.5-10.1) 9.0 mg/dL (8.5-10.1) Magnesium Level 2.4 mg/dL (1.8-2.4) 2.4 mg/dL (1.8-2.4) Total Bilirubin 0.7 mg/dL (0.2-1.0) Aspartate Amino Transf (AST/SGOT) 20 U/L (15-37) Alanine Aminotransferase (ALT/SGPT) 28 U/L (16-63) Alkaline Phosphatase 61 U/L (46-116) Troponin I Quantitative 0.065 ng/mL (0.000-0.055) ZY-Luf-E-Type Natriuretic Peptide 35 pg/mL (0-124) Total Protein 8.0 g/dL (6.4-8.2) Albumin 4.0 g/dL (3.4-5.0) Albumin/Globulin Ratio 1.0 (1.0-1.7) Ethyl Alcohol Level < 10 mg/dL (0-10) Urine Collection Type Unknown Urine Color Yellow Urine Clarity Clear Urine pH 6.0 Urine Specific Dolph 1.025 Urine Protein 100 mg/dL (NEG-TRACE) Urine Glucose (UA) Negative mg/dL (NEG) Urine Ketones (Stick) Trace mg/dL (NEG) Urine Blood Large (NEG) Urine Nitrite Negative (NEG) Urine Bilirubin Negative (NEG) Urine Urobilinogen Dipstick 0.2 mg/dL (0.2 mg/dL) Urine Leukocyte Esterase Negative (NEG) Urine RBC 3-5 /HPF (0-2) Urine WBC 1-4 /HPF (0-4) Urine Squamous Epithelial Cells Mod /LPF Urine Amorphous Sediment Present /HPF Urine Bacteria 0 /HPF (0-FEW) Urine Hyaline Casts Moderate /HPF Urine Mucus Mod /LPF Urine Opiates Screen Neg (NEG) Urine Methadone Screen Neg (NEG) Urine Barbiturates Neg (NEG) Urine Phencyclidine Screen Neg (NEG) Urine Amphetamine/Methamphetamine Neg (NEG) Urine Benzodiazepines Screen Pos (NEG) Urine Cocaine Screen Neg (NEG) Urine Cannabinoids Screen Neg (NEG) Urine Ethyl Alcohol Neg (NEG) Triglycerides Level 87 mg/dL (0-150) Cholesterol Level 158 mg/dL (0-200) LDL Cholesterol, Calculated 104 mg/dL (0-100) VLDL Cholesterol, Calculated 17 mg/dL (0-40) Non-HDL Cholesterol Calculated 121 mg/dL (0-129) HDL Cholesterol 37 mg/dL (40-60) Cholesterol/HDL Ratio 4.3 Thyroid Stimulating Hormone (TSH) 0.517 uIU/mL (0.358-3.74) Test 11/28/18 09:30 11/28/18 12:45 11/28/18 14:15 Prothrombin Time 12.8 SEC (11.7-14.0) Prothromb Time International Ratio 1.0 (0.8-1.1) Activated Partial Thromboplast Time 33 SEC (24-38) Fibrinogen 325 mg/dL (200-440) D-Dimer (Xiomara) < 0.27 ug/mlFEU Procalcitonin 0.22 ng/mL (0.00-0.10) Lactic Acid Level 1.4 mmol/L (0.4-2.0) Troponin I Quantitative 0.019 ng/mL (0.000-0.055) KENYA MARLEY MD Nov 28, 2018 16:34
[2018-11-28] MEDS: QUEtiapine 25 MG TABLET. PO SCH (17:34)
[2018-11-29] VITALS (17 sets, daily range): BP systolic 98–161; BP diastolic 53–102
[2018-11-29] MEDS: PIPERACILLIN/TAZOBACTAM 3.375 GM in IV NORMAL SALINE 50ML 50 ML IV SCH ×5 (00:08→23:13)
[2018-11-29] MEDS ORDERED: VANCOMYCIN 1.5 GM in IV NORMAL SALINE 500ML BAG 500 ML IV SCH (02:00)
[2018-11-29 03:33] LABS: BASO # 0.1 x10^3/uL (0.0-0.2); BASO % 1 % (0-3); EOS # 0.1 x10^3/uL (0.0-0.7); EOS % 1 % (0-3); HEMATOCRIT 46.1 % (39.0-53.0); HEMOGLOBIN 14.9 g/dL (13.0-17.5); LYMPH # 3.2 x10^3/uL (1.0-4.8); LYMPH % 32 % (24-48); MEAN CORPUSCULAR HEMOGLOBIN 29 pg (25-35); MEAN CORPUSCULAR HGB CONC 32 g/dL (31-37); MEAN CORPUSCULAR VOLUME 91 fL (79-100); MONO # 0.8 x10^3/uL (0.0-1.1); MONO % 8 % (0-9); NEUT # 5.7 x10^3uL (1.8-7.7); NEUT % 58 % (31-73); PLATELET COUNT 272 x10^3/uL (140-400); RED BLOOD COUNT 5.08 x10^6/uL (4.30-5.70); RED CELL DISTRIBUTION WIDTH 13.9 % (11.5-14.5); WHITE BLOOD COUNT 9.9 x10^3/uL (4.0-11.0)
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
[2018-11-29 04:03] LABS: ALBUMIN 3.4 g/dL (3.4-5.0); ALBUMIN/GLOBULIN RATIO 0.9 (1.0-1.7); CALCIUM 8.5 mg/dL (8.5-10.1); CREATININE 1.3 mg/dL (0.7-1.3); GFR 63.2; POTASSIUM 3.8 mmol/L (3.5-5.1); TOTAL BILIRUBIN 1.5 mg/dL (0.2-1.0); TOTAL PROTEIN 7.2 g/dL (6.4-8.2)
--- NOTE | 2018-11-29 07:02 | PDOC ---
Infectious Disease Note Subjective: Subjective Pt alert awake calm answers a few questions comfortable says is hungry no n/v/abdo pain no headache d./w RN ROS: ROS limited but as above Vital Signs: Vital Signs Vital Signs Date Time Temp Pulse Resp B/P (MAP) Pulse Ox O2 Delivery O2 Flow Rate FiO2 11/29/18 06:00 76 12 98/67 (77) 95 Room Air 2.0 11/29/18 05:20 98.5 98.5 Physical Exam: PHYSICAL EXAM GENERAL: Well-developed, well-nourished male, in no acute distress, smiling, appears comfortable, moving in bed without any difficulty. HEENT: Pupils equal, reactive. Extraocular movements are intact. Normal conjunctivae. No discharge. NECK: Supple. No JVD. LUNGS: Clear bilaterally. HEART: S1, S2, no murmurs. ABDOMEN: Limited, but soft, nontender. No rebound, no guarding. DERMATOLOGIC: Warm, dry. No generalized skin rash. Skin breakdown around the knuckles of both hands not secondarily infected. BACK: Normal curvature. No CVA tenderness. EXTREMITIES: No edema, no cyanosis. PSYCHIATRIC: Unable to assess. NEUROLOGIC: Alert and oriented x 1. Moves all 4 extremities. Medications: Inpatient Meds: Current Medications Medications (Trade) Dose Ordered Sig/[facility] Start Time Stop Time Status Last Admin Dose Admin Aspirin (Children'S Aspirin) 324 mg 1X ONCE 11/27/18 23:45 11/27/18 23:46 DC 11/28/18 00:00 324 MG Cefazolin Sodium 50 ml @ 100 mls/hr 1X ONCE 11/27/18 22:45 11/27/18 23:14 DC 11/28/18 00:04 100 MLS/HR Diphtheria/ Tetanus/Acell Pertussis (Boostrix) 0.5 ml ONCE ONCE 11/27/18 22:45 11/27/18 22:46 DC 11/28/18 00:01 0.5 ML Dobutamine HCl/ Dextrose 250 ml @ 0 mls/hr CONT PRN 11/28/18 12:30 Lactobacillus Rhamnosus (Culturelle) 1 cap BID 11/28/18 10:00 11/28/18 14:02 1 CAP Lorazepam (Ativan) 2 mg PRN Q4HRS PRN 11/27/18 23:45 11/28/18 20:33 2 MG Norepinephrine Bitartrate 250 ml @ 0 mls/hr CONT PRN 11/28/18 12:30 Piperacillin Sod/ Tazobactam Sod (Zosyn Per Pharmacy) 1 each PRN DAILY PRN 11/28/18 01:15 Piperacillin Sod/ Tazobactam Sod 3.375 gm/Sodium Chloride 50 ml @ 100 mls/hr Q6HRS 11/28/18 06:00 11/29/18 05:48 100 MLS/HR Quetiapine Fumarate (SEROquel) 12.5 mg DAILY 11/28/18 17:00 11/28/18 17:34 12.5 MG Sodium Chloride 500 ml @ 1,000 mls/hr PRN Q30MIN PRN 11/28/18 12:30 Vancomycin HCl (Vanco Per Pharmacy) 1 each PRN DAILY PRN 11/28/18 12:30 11/28/18 14:32 DC 11/28/18 14:09 1 EACH Vancomycin HCl (Vancomycin Trough Level) 1 each 1X ONCE 11/29/18 13:30 11/29/18 13:30 DC Vancomycin HCl 1.5 gm/Sodium Chloride 500 ml @ 250 mls/hr Q12H 11/29/18 02:00 11/29/18 02:00 DC Vancomycin HCl 2 gm/Sodium Chloride 500 ml @ 250 mls/hr 1X ONCE 11/28/18 13:00 11/28/18 14:59 DC 11/28/18 13:47 250 MLS/HR Ziprasidone (Geodon Im) 20 mg STK-MED ONCE 11/28/18 06:35 11/28/18 06:36 DC Labs: Lab Laboratory Tests Test 11/28/18 09:00 11/28/18 09:30 11/28/18 12:45 11/28/18 14:15 Sodium Level 143 mmol/L (136-145) Potassium Level 4.7 mmol/L (3.5-5.1) Chloride Level 106 mmol/L (98-107) Carbon Dioxide Level 23 mmol/L (21-32) Anion Gap 14 (6-14) Blood Urea Nitrogen 12 mg/dL (8-26) Creatinine 1.2 mg/dL (0.7-1.3) Estimated GFR (Cockcroft-Gault) 69.3 Glucose Level 95 mg/dL (70-99) Calcium Level 9.0 mg/dL (8.5-10.1) Magnesium Level 2.4 mg/dL (1.8-2.4) Triglycerides Level 87 mg/dL (0-150) Cholesterol Level 158 mg/dL (0-200) LDL Cholesterol, Calculated 104 mg/dL (0-100) VLDL Cholesterol, Calculated 17 mg/dL (0-40) Non-HDL Cholesterol Calculated 121 mg/dL (0-129) HDL Cholesterol 37 mg/dL (40-60) Cholesterol/HDL Ratio 4.3 Thyroid Stimulating Hormone (TSH) 0.517 uIU/mL (0.358-3.74) Prothrombin Time 12.8 SEC (11.7-14.0) Prothromb Time International Ratio 1.0 (0.8-1.1) Activated Partial Thromboplast Time 33 SEC (24-38) Fibrinogen 325 mg/dL (200-440) D-Dimer (Xiomara) < 0.27 ug/mlFEU Procalcitonin 0.22 ng/mL (0.00-0.10) Lactic Acid Level 1.4 mmol/L (0.4-2.0) Troponin I Quantitative 0.019 ng/mL (0.000-0.055) Test 11/29/18 03:20 White Blood Count 9.9 x10^3/uL (4.0-11.0) Red Blood Count 5.08 x10^6/uL (4.30-5.70) Hemoglobin 14.9 g/dL (13.0-17.5) Hematocrit 46.1 % (39.0-53.0) Mean Corpuscular Volume 91 fL (79-100) Mean Corpuscular Hemoglobin 29 pg (25-35) Mean Corpuscular Hemoglobin Concent 32 g/dL (31-37) Red Cell Distribution Width 13.9 % (11.5-14.5) Platelet Count 272 x10^3/uL (140-400) Neutrophils (%) (Auto) 58 % (31-73) Lymphocytes (%) (Auto) 32 % (24-48) Monocytes (%) (Auto) 8 % (0-9) Eosinophils (%) (Auto) 1 % (0-3) Basophils (%) (Auto) 1 % (0-3) Neutrophils # (Auto) 5.7 x10^3uL (1.8-7.7) Lymphocytes # (Auto) 3.2 x10^3/uL (1.0-4.8) Monocytes # (Auto) 0.8 x10^3/uL (0.0-1.1) Eosinophils # (Auto) 0.1 x10^3/uL (0.0-0.7) Basophils # (Auto) 0.1 x10^3/uL (0.0-0.2) Sodium Level 142 mmol/L (136-145) Potassium Level 3.8 mmol/L (3.5-5.1) Chloride Level 105 mmol/L (98-107) Carbon Dioxide Level 26 mmol/L (21-32) Anion Gap 11 (6-14) Blood Urea Nitrogen 11 mg/dL (8-26) Creatinine 1.3 mg/dL (0.7-1.3) Estimated GFR (Cockcroft-Gault) 63.2 BUN/Creatinine Ratio 8 (6-20) Glucose Level 101 mg/dL (70-99) Calcium Level 8.5 mg/dL (8.5-10.1) Total Bilirubin 1.5 mg/dL (0.2-1.0) Aspartate Amino Transf (AST/SGOT) 16 U/L (15-37) Alanine Aminotransferase (ALT/SGPT) 22 U/L (16-63) Alkaline Phosphatase 53 U/L (46-116) Total Protein 7.2 g/dL (6.4-8.2) Albumin 3.4 g/dL (3.4-5.0) Albumin/Globulin Ratio 0.9 (1.0-1.7) Objective: Assessment: Altered mental status likely metabolic , Leucocytosis improving abdo pain,Nausea resolving Cognitive disability hematuria SUE likely dehydration resolved Plan: Plan of Care cont Zosyn off Vanc due to SUE f/u CT abdo and pelvis f/u cults and labs in am cont supportive care D/W KARIE PATEL MD Nov 29, 2018 07:02
--- NOTE | 2018-11-29 08:52 | RAD ---
PQRS Compliance Statement: One or more of the following individualized dose reduction techniques were utilized for this examination: 1. Automated exposure control 2. Adjustment of the mA and/or kV according to patient size 3. Use of iterative reconstruction technique CT ABDOMEN PELVIS WO CONTRAST Clinical Indication: ABD PAIN, altered mental status. Comparison: CT abdomen and pelvis with contrast, March 23, 2014. Technique: Helical CT imaging of the abdomen and pelvis is performed without IV or oral contrast. Findings: Evaluation of solid organs and bowel is limited without oral and IV contrast, decreasing sensitivity for detection of pathology. Image quality is moderately degraded due to respiratory motion artifact. The lung bases are clear. No intraperitoneal free air. Mild left gynecomastia. Cardiac size normal. Liver, gallbladder, spleen, pancreas, adrenal glands, abdominal aorta, and kidneys are normal. Heterogeneous material in the lumen of the stomach. No gastric wall thickening is identified. There is no dilated small bowel. The appendix is normal. No colon wall thickening. No abdominal adenopathy or free fluid. Urinary bladder is not well distended accentuating wall thickness. Prostate size normal. No pelvic free fluid. 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 No acute bone abnormality. IMPRESSION: No acute abdominal or pelvic abnormality. Electronically signed by: Ricardo Amaro MD (11/29/2018 8:49 AM) [id number]
--- NOTE | 2018-11-29 10:23 | PDOC ---
PROGRESS NOTES History of Present Illness History of Present Illness Assessment/Plan Assessment/Plan Impression: Altered mental status elevated troponin i , likely demand Elevated lactic acid level LEUKOCYTOSIS, suspect metabolic POSSIBLE SEPSIS SUE hypokalemia Trauma: from window glass at home, laceration/abrasion to hands. AUTISM PLAN ICU CARE IV FLUID SUPPORT BLOOD/ URINE CULTURES NEUROLOGY CONSULT EMPERIC IV ANTIBIOTICS, ZOSYN, d/c VANC ID following CARDIOLOGY CONSULT SCD'S depakote level advance diet as luly 33 MIN CC TIME Vitals Vitals Vital Signs Date Time Temp Pulse Resp B/P (MAP) Pulse Ox O2 Delivery O2 Flow Rate FiO2 11/29/18 10:00 98.4 91 15 145/86 (105) 97 Room Air 98.4 11/29/18 06:00 2.0 Physical Exam Physical Exam GENERAL: Well-developed, well-nourished male, in no acute distress, smiling, appears comfortable, moving in bed without any difficulty. HEENT: Pupils equal, reactive. Extraocular movements are intact. Normal conjunctivae. No discharge. NECK: Supple. No JVD. LUNGS: Clear bilaterally. HEART: S1, S2, no murmurs. ABDOMEN: Limited, but soft, nontender. No rebound, no guarding. DERMATOLOGIC: Warm, dry. No generalized skin rash. Skin breakdown around the knuckles of both hands not secondarily infected. BACK: Normal curvature. No CVA tenderness. EXTREMITIES: No edema, no cyanosis. PSYCHIATRIC: Unable to assess. NEUROLOGIC: Alert , Moves all 4 extremities. General: Alert, Cooperative, No acute distress Heart: Regular rate (SR/ST), Normal S1, Normal S2, No murmurs Abdomen: Normal bowel sounds, Soft, No tenderness Extremities: No clubbing, No cyanosis, No edema Skin: No breakdown (some cuts left knuckles, healing well xray pending), No significant lesion Labs LABS Harley Escalera M.D., [employer]ide Machine [employer] PATIENT: STEFF SCHAEFFER ACCT: [id number] LOC: 1 WEST ICU U : [id number] AGE/SX: 33/M ROOM: 102 REG : 11/27/[address]: ANÍBAL VELIZ MD : 1985 BED: 1 DIS : STATUS: ADM IN TLOC: SPEC #: [id number] BRAN: 11/28/18 STATUS: RES REQ #: [id number] RECD: 11/28/[address]: ANÍBAL VELIZ MD SOURCE: BLOOD ENTR: 11/28/[address] [facility] DR: LYNN PACKER MD [facility]: ORDERED: BCULT Procedure Result BLOOD CULTURE Preliminary NO GROWTH AFTER 1 DAY Laboratory Tests Test 11/28/18 12:45 11/28/18 14:15 11/29/18 03:20 Lactic Acid Level 1.4 mmol/L (0.4-2.0) Troponin I Quantitative 0.019 ng/mL (0.000-0.055) White Blood Count 9.9 x10^3/uL (4.0-11.0) Red Blood Count 5.08 x10^6/uL (4.30-5.70) Hemoglobin 14.9 g/dL (13.0-17.5) Hematocrit 46.1 % (39.0-53.0) Mean Corpuscular Volume 91 fL (79-100) Mean Corpuscular Hemoglobin 29 pg (25-35) Mean Corpuscular Hemoglobin Concent 32 g/dL (31-37) Red Cell Distribution Width 13.9 % (11.5-14.5) Platelet Count 272 x10^3/uL (140-400) Neutrophils (%) (Auto) 58 % (31-73) Lymphocytes (%) (Auto) 32 % (24-48) Monocytes (%) (Auto) 8 % (0-9) Eosinophils (%) (Auto) 1 % (0-3) Basophils (%) (Auto) 1 % (0-3) Neutrophils # (Auto) 5.7 x10^3uL (1.8-7.7) Lymphocytes # (Auto) 3.2 x10^3/uL (1.0-4.8) Monocytes # (Auto) 0.8 x10^3/uL (0.0-1.1) Eosinophils # (Auto) 0.1 x10^3/uL (0.0-0.7) Basophils # (Auto) 0.1 x10^3/uL (0.0-0.2) Sodium Level 142 mmol/L (136-145) Potassium Level 3.8 mmol/L (3.5-5.1) Chloride Level 105 mmol/L (98-107) Carbon Dioxide Level 26 mmol/L (21-32) Anion Gap 11 (6-14) Blood Urea Nitrogen 11 mg/dL (8-26) Creatinine 1.3 mg/dL (0.7-1.3) Estimated GFR (Cockcroft-Gault) 63.2 BUN/Creatinine Ratio 8 (6-20) Glucose Level 101 mg/dL (70-99) Calcium Level 8.5 mg/dL (8.5-10.1) Total Bilirubin 1.5 mg/dL (0.2-1.0) Aspartate Amino Transf (AST/SGOT) 16 U/L (15-37) Alanine Aminotransferase (ALT/SGPT) 22 U/L (16-63) Alkaline Phosphatase 53 U/L (46-116) Total Protein 7.2 g/dL (6.4-8.2) Albumin 3.4 g/dL (3.4-5.0) Albumin/Globulin Ratio 0.9 (1.0-1.7) Assessment and Plan Assessmemt and Plan Problems Medical Problems: (1) Elevated lactic acid level Status: Acute Comment Review of Relevant I have reviewed the following items minor (where applicable) has been applied. Labs Laboratory Tests Test 11/27/18 22:40 11/27/18 23:30 11/28/18 00:45 11/28/18 02:50 White Blood Count 25.6 x10^3/uL (4.0-11.0) 19.9 x10^3/uL (4.0-11.0) Red Blood Count 5.33 x10^6/uL (4.30-5.70) 4.88 x10^6/uL (4.30-5.70) Hemoglobin 15.8 g/dL (13.0-17.5) 14.0 g/dL (13.0-17.5) Hematocrit 47.7 % (39.0-53.0) 44.2 % (39.0-53.0) Mean Corpuscular Volume 89 fL (79-100) 91 fL (79-100) Mean Corpuscular Hemoglobin 30 pg (25-35) 29 pg (25-35) Mean Corpuscular Hemoglobin Concent 33 g/dL (31-37) 32 g/dL (31-37) Red Cell Distribution Width 13.6 % (11.5-14.5) 13.7 % (11.5-14.5) Platelet Count 289 x10^3/uL (140-400) 264 x10^3/uL (140-400) Neutrophils (%) (Auto) 89 % (31-73) 76 % (31-73) Lymphocytes (%) (Auto) 5 % (24-48) 15 % (24-48) Monocytes (%) (Auto) 6 % (0-9) 8 % (0-9) Eosinophils (%) (Auto) 0 % (0-3) 0 % (0-3) Basophils (%) (Auto) 0 % (0-3) 1 % (0-3) Neutrophils # (Auto) 22.7 x10^3uL (1.8-7.7) 15.1 x10^3uL (1.8-7.7) Lymphocytes # (Auto) 1.3 x10^3/uL (1.0-4.8) 3.1 x10^3/uL (1.0-4.8) Monocytes # (Auto) 1.5 x10^3/uL (0.0-1.1) 1.6 x10^3/uL (0.0-1.1) Eosinophils # (Auto) 0.0 x10^3/uL (0.0-0.7) 0.0 x10^3/uL (0.0-0.7) Basophils # (Auto) 0.1 x10^3/uL (0.0-0.2) 0.2 x10^3/uL (0.0-0.2) Segmented Neutrophils % 81 % (35-66) Band Neutrophils % 11 % (0-9) Lymphocytes % 6 % (24-48) Monocytes % 2 % (0-10) Platelet Estimate Adequate (ADEQUATE) Prothrombin Time 13.3 SEC (11.7-14.0) Prothromb Time International Ratio 1.0 (0.8-1.1) Sodium Level 143 mmol/L (136-145) Potassium Level 3.4 mmol/L (3.5-5.1) Chloride Level 105 mmol/L (98-107) Carbon Dioxide Level 23 mmol/L (21-32) Anion Gap 15 (6-14) Blood Urea Nitrogen 18 mg/dL (8-26) Creatinine 1.8 mg/dL (0.7-1.3) Estimated GFR (Cockcroft-Gault) 43.4 BUN/Creatinine Ratio 10 (6-20) Glucose Level 168 mg/dL (70-99) Lactic Acid Level 4.4 mmol/L (0.4-2.0) 1.2 mmol/L (0.4-2.0) Calcium Level 9.3 mg/dL (8.5-10.1) Magnesium Level 2.4 mg/dL (1.8-2.4) Total Bilirubin 0.7 mg/dL (0.2-1.0) Aspartate Amino Transf (AST/SGOT) 20 U/L (15-37) Alanine Aminotransferase (ALT/SGPT) 28 U/L (16-63) Alkaline Phosphatase 61 U/L (46-116) Troponin I Quantitative 0.065 ng/mL (0.000-0.055) ZJ-Hwl-A-Type Natriuretic Peptide 35 pg/mL (0-124) Total Protein 8.0 g/dL (6.4-8.2) Albumin 4.0 g/dL (3.4-5.0) Albumin/Globulin Ratio 1.0 (1.0-1.7) Ethyl Alcohol Level < 10 mg/dL (0-10) Urine Collection Type Unknown Urine Color Yellow Urine Clarity Clear Urine pH 6.0 Urine Specific [place] 1.025 Urine Protein 100 mg/dL (NEG-TRACE) Urine Glucose (UA) Negative mg/dL (NEG) Urine Ketones (Stick) Trace mg/dL (NEG) Urine Blood Large (NEG) Urine Nitrite Negative (NEG) Urine Bilirubin Negative (NEG) Urine Urobilinogen Dipstick 0.2 mg/dL (0.2 mg/dL) Urine Leukocyte Esterase Negative (NEG) Urine RBC 3-5 /HPF (0-2) Urine WBC 1-4 /HPF (0-4) Urine Squamous Epithelial Cells Mod /LPF Urine Amorphous Sediment Present /HPF Urine Bacteria 0 /HPF (0-FEW) Urine Hyaline Casts Moderate /HPF Urine Mucus Mod /LPF Urine Opiates Screen Neg (NEG) Urine Methadone Screen Neg (NEG) Urine Barbiturates Neg (NEG) Urine Phencyclidine Screen Neg (NEG) Urine Amphetamine/Methamphetamine Neg (NEG) Urine Benzodiazepines Screen Pos (NEG) Urine Cocaine Screen Neg (NEG) Urine Cannabinoids Screen Neg (NEG) Urine Ethyl Alcohol Neg (NEG) Nasal Screen MRSA (PCR) Negative (Negative) Test 11/28/18 09:00 11/28/18 09:30 11/28/18 12:45 11/28/18 14:15 Sodium Level 143 mmol/L (136-145) Potassium Level 4.7 mmol/L (3.5-5.1) Chloride Level 106 mmol/L (98-107) Carbon Dioxide Level 23 mmol/L (21-32) Anion Gap 14 (6-14) Blood Urea Nitrogen 12 mg/dL (8-26) Creatinine 1.2 mg/dL (0.7-1.3) Estimated GFR (Cockcroft-Gault) 69.3 Glucose Level 95 mg/dL (70-99) Calcium Level 9.0 mg/dL (8.5-10.1) Magnesium Level 2.4 mg/dL (1.8-2.4) Triglycerides Level 87 mg/dL (0-150) Cholesterol Level 158 mg/dL (0-200) LDL Cholesterol, Calculated 104 mg/dL (0-100) VLDL Cholesterol, Calculated 17 mg/dL (0-40) Non-HDL Cholesterol Calculated 121 mg/dL (0-129) HDL Cholesterol 37 mg/dL (40-60) Cholesterol/HDL Ratio 4.3 Thyroid Stimulating Hormone (TSH) 0.517 uIU/mL (0.358-3.74) Prothrombin Time 12.8 SEC (11.7-14.0) Prothromb Time International Ratio 1.0 (0.8-1.1) Activated Partial Thromboplast Time 33 SEC (24-38) Fibrinogen 325 mg/dL (200-440) D-Dimer (Xiomara) < 0.27 ug/mlFEU Procalcitonin 0.22 ng/mL (0.00-0.10) Lactic Acid Level 1.4 mmol/L (0.4-2.0) Troponin I Quantitative 0.019 ng/mL (0.000-0.055) Test 11/29/18 03:20 White Blood Count 9.9 x10^3/uL (4.0-11.0) Red Blood Count 5.08 x10^6/uL (4.30-5.70) Hemoglobin 14.9 g/dL (13.0-17.5) Hematocrit 46.1 % (39.0-53.0) Mean Corpuscular Volume 91 fL (79-100) Mean Corpuscular Hemoglobin 29 pg (25-35) Mean Corpuscular Hemoglobin Concent 32 g/dL (31-37) Red Cell Distribution Width 13.9 % (11.5-14.5) Platelet Count 272 x10^3/uL (140-400) Neutrophils (%) (Auto) 58 % (31-73) Lymphocytes (%) (Auto) 32 % (24-48) Monocytes (%) (Auto) 8 % (0-9) Eosinophils (%) (Auto) 1 % (0-3) Basophils (%) (Auto) 1 % (0-3) Neutrophils # (Auto) 5.7 x10^3uL (1.8-7.7) Lymphocytes # (Auto) 3.2 x10^3/uL (1.0-4.8) Monocytes # (Auto) 0.8 x10^3/uL (0.0-1.1) Eosinophils # (Auto) 0.1 x10^3/uL (0.0-0.7) Basophils # (Auto) 0.1 x10^3/uL (0.0-0.2) Sodium Level 142 mmol/L (136-145) Potassium Level 3.8 mmol/L (3.5-5.1) Chloride Level 105 mmol/L (98-107) Carbon Dioxide Level 26 mmol/L (21-32) Anion Gap 11 (6-14) Blood Urea Nitrogen 11 mg/dL (8-26) Creatinine 1.3 mg/dL (0.7-1.3) Estimated GFR (Cockcroft-Gault) 63.2 BUN/Creatinine Ratio 8 (6-20) Glucose Level 101 mg/dL (70-99) Calcium Level 8.5 mg/dL (8.5-10.1) Total Bilirubin 1.5 mg/dL (0.2-1.0) Aspartate Amino Transf (AST/SGOT) 16 U/L (15-37) Alanine Aminotransferase (ALT/SGPT) 22 U/L (16-63) Alkaline Phosphatase 53 U/L (46-116) Total Protein 7.2 g/dL (6.4-8.2) Albumin 3.4 g/dL (3.4-5.0) Albumin/Globulin Ratio 0.9 (1.0-1.7) Laboratory Tests Test 11/28/18 12:45 11/28/18 14:15 11/29/18 03:20 Lactic Acid Level 1.4 mmol/L (0.4-2.0) Troponin I Quantitative 0.019 ng/mL (0.000-0.055) White Blood Count 9.9 x10^3/uL (4.0-11.0) Red Blood Count 5.08 x10^6/uL (4.30-5.70) Hemoglobin 14.9 g/dL (13.0-17.5) Hematocrit 46.1 % (39.0-53.0) Mean Corpuscular Volume 91 fL (79-100) Mean Corpuscular Hemoglobin 29 pg (25-35) Mean Corpuscular Hemoglobin Concent 32 g/dL (31-37) Red Cell Distribution Width 13.9 % (11.5-14.5) Platelet Count 272 x10^3/uL (140-400) Neutrophils (%) (Auto) 58 % (31-73) Lymphocytes (%) (Auto) 32 % (24-48) Monocytes (%) (Auto) 8 % (0-9) Eosinophils (%) (Auto) 1 % (0-3) Basophils (%) (Auto) 1 % (0-3) Neutrophils # (Auto) 5.7 x10^3uL (1.8-7.7) Lymphocytes # (Auto) 3.2 x10^3/uL (1.0-4.8) Monocytes # (Auto) 0.8 x10^3/uL (0.0-1.1) Eosinophils # (Auto) 0.1 x10^3/uL (0.0-0.7) Basophils # (Auto) 0.1 x10^3/uL (0.0-0.2) Sodium Level 142 mmol/L (136-145) Potassium Level 3.8 mmol/L (3.5-5.1) Chloride Level 105 mmol/L (98-107) Carbon Dioxide Level 26 mmol/L (21-32) Anion Gap 11 (6-14) Blood Urea Nitrogen 11 mg/dL (8-26) Creatinine 1.3 mg/dL (0.7-1.3) Estimated GFR (Cockcroft-Gault) 63.2 BUN/Creatinine Ratio 8 (6-20) Glucose Level 101 mg/dL (70-99) Calcium Level 8.5 mg/dL (8.5-10.1) Total Bilirubin 1.5 mg/dL (0.2-1.0) Aspartate Amino Transf (AST/SGOT) 16 U/L (15-37) Alanine Aminotransferase (ALT/SGPT) 22 U/L (16-63) Alkaline Phosphatase 53 U/L (46-116) Total Protein 7.2 g/dL (6.4-8.2) Albumin 3.4 g/dL (3.4-5.0) Albumin/Globulin Ratio 0.9 (1.0-1.7) Microbiology 11/28/18 Blood Culture - Preliminary, Resulted NO GROWTH AFTER 1 DAY Medications Current Medications Sodium Chloride 1,000 ml @ 1,000 mls/hr 1X ONCE IV Last administered on at 22:42; Start 11/27/18 at 22:30; Stop 11/27/18 at 23:29; Status DC Cefazolin Sodium 50 ml @ 100 mls/hr 1X ONCE IV Last administered on at 00:04; Start 11/27/18 at 22:45; Stop 11/27/18 at 23:14; Status DC Diphtheria/ Tetanus/Acell Pertussis (Boostrix) 0.5 ml ONCE ONCE VAX IM Last administered on 11/28/18at 00:01; Start 11/27/18 at 22:45; Stop 11/27/18 at 22:46 ; Status DC Aspirin (Children'S Aspirin) 324 mg 1X ONCE PO Last administered on 11/28/18at 00:00; Start 11/27/18 at 23:45; Stop 11/27/18 at 23:46; Status DC Lorazepam (Ativan) 2 mg PRN Q4HRS PRN IV ANXIETY / AGITATION Last administered on 11/28/18at 20:33; Start 11/27/18 at 23:45 Piperacillin Sod/ Tazobactam Sod 3.375 gm/Sodium Chloride 50 ml @ 100 mls/hr 1X ONCE IV Last administered on 11/28/18at 01:17; Start 11/28/18 at 00:15; Stop 11/28/18 at 00:44; Status DC Sodium Chloride 1,000 ml @ 1,000 mls/hr 1X ONCE IV Last administered on at 23:57; Start 11/28/18 at 00:00; Stop 11/28/18 at 00:59; Status DC Sodium Chloride 1,000 ml @ 1,000 mls/hr 1X ONCE IV Last administered on at 01:55; Start 11/28/18 at 01:15; Stop 11/28/18 at 02:14; Status DC Piperacillin Sod/ Tazobactam Sod (Zosyn Per Pharmacy) 1 each PRN DAILY PRN MC SEE COMMENTS; Start 11/28/18 at 01:15 Piperacillin Sod/ Tazobactam Sod 3.375 gm/Sodium Chloride 50 ml @ 100 mls/hr Q6HRS IV Last administered on 11/29/18at 05:48; Start 11/28/18 at 06:00 Ziprasidone (Geodon Im) 20 mg STK-MED ONCE IM ; Start 11/28/18 at 06:35; Stop at 06:36; Status DC Lactobacillus Rhamnosus (Culturelle) 1 cap BID PO Last administered on at 14:02; Start 11/28/18 at 10:00 Vancomycin HCl (Vanco Per Pharmacy) 1 each PRN DAILY PRN MC SEE COMMENTS Last administered on 11/28/18at 14:09; Start 11/28/18 at 12:30; Stop 11/28/18 at 14:32 ; Status DC Sodium Chloride 1,000 ml @ 1,860 mls/hr Q33M IV Last administered on at 14:29; Start 11/28/18 at 12:45; Stop 11/28/18 at 13:45; Status DC Sodium Chloride 500 ml @ 1,000 mls/hr PRN Q30MIN PRN IV SEE COMMENTS; Start at 12:30 Norepinephrine Bitartrate 250 ml @ 0 mls/hr CONT PRN IV SEE I/O RECORD; Start 11/28/18 at 12:30 Dobutamine HCl/ Dextrose 250 ml @ 0 mls/hr CONT PRN IV SEE I/O RECORD; Start at 12:30 Vancomycin HCl 2 gm/Sodium Chloride 500 ml @ 250 mls/hr 1X ONCE IV Last administered on 11/28/18at 13:47; Start 11/28/18 at 13:00; Stop 11/28/18 at 14:59 ; Status DC Vancomycin HCl 1.5 gm/Sodium Chloride 500 ml @ 250 mls/hr Q12H IV ; Start 11/29 at 02:00; Stop 11/29/18 at 02:00; Status DC Vancomycin HCl (Vancomycin Trough Level) 1 each 1X ONCE MC ; Start 11/29/18 at 13:30; Stop 11/29/18 at 13:30; Status DC Quetiapine Fumarate (SEROquel) 12.5 mg DAILY PO Last administered on 11/28/18at 17:34; Start 11/28/18 at 17:00 Active Scripts Active Reported Lactulose 20 Gm/30 Ml Solution 10 Gm PO BID Clonidine Hcl 0.1 Mg Tablet 0.1 Mg PO BID Lorazepam 0.5 Mg Tablet 1 Tab PO BID Lisinopril 5 Mg Tablet 1 Tab PO DAILY Latuda (Lurasidone Hcl) 80 Mg Tablet 1 Tab PO QHS Gabapentin 600 Mg Tablet 600 Mg PO QID Clonazepam 0.5 Mg Tablet 1 Tab PO BID Amlodipine Besylate 10 Mg Tablet 10 Mg PO DAILY Clonazepam 2 Mg Tablet 2 Mg PO BID Acetaminophen 500 Mg Tablet 500 Mg PO Loxapine (Loxapine Succinate) 10 Mg Capsule 10 Mg PO Gabapentin 600 Mg Tablet 600 Mg PO TID Divalproex Sodium 500 Mg Tablet.dr 500 Mg PO DAILY Benztropine Mesylate 2 Mg Tablet 2 Mg PO DAILY Abilify (Aripiprazole) 30 Mg Tablet 30 Mg PO DAILY Vitals/I & O Vital Sign - Last 24 Hours 11/28/18 11/28/18 11/28/18 11/28/18 11:00 12:00 12:00 13:00 Pulse 106 102 102 Resp 11 12 14 B/P (MAP) 145/93 (110) 113/73 (86) 116/72 (87) Pulse Ox 93 94 97 O2 Delivery Room Air Room Air Room Air Room Air 11/28/18 11/28/18 11/28/18 11/28/18 14:00 15:18 16:00 16:13 Pulse 101 101 104 Resp 14 14 12 B/P (MAP) 114/69 (84) 143/90 (107) 135/83 (100) Pulse Ox 98 98 98 O2 Delivery Room Air Room Air Room Air Room Air 11/28/18 11/28/18 11/28/18 11/28/18 17:00 18:00 19:00 20:00 Temp 98.2 98.9 98.2 98.9 Pulse 114 114 96 96 B/P (MAP) 149/89 (109) 149/89 (109) 149/74 (99) 144/94 (111) Pulse Ox 98 95 94 O2 Delivery Room Air Room Air Room Air Room Air O2 Flow Rate 2.0 11/28/18 11/28/18 11/28/18 11/28/18 20:00 21:00 22:00 23:59 Pulse 80 76 B/P (MAP) 125/64 (84) 107/75 (86) Pulse Ox 97 95 O2 Delivery Room Air Room Air Room Air Room Air 11/29/18 11/29/18 11/29/18 11/29/18 00:01 01:07 02:00 03:20 Temp 98.9 98.9 98.9 98.9 Pulse 84 66 79 87 Resp 14 14 12 12 B/P (MAP) 104/55 (71) 118/66 (83) 117/64 (81) 108/70 (83) Pulse Ox 95 95 O2 Delivery Room Air Room Air Room Air Room Air 11/29/18 11/29/18 11/29/18 11/29/18 04:00 04:00 05:20 06:00 Temp 98.9 98.5 98.9 98.5 Pulse 76 76 76 Resp 11 14 12 B/P (MAP) 103/70 (81) 98/67 (77) 98/67 (77) Pulse Ox 95 95 O2 Delivery Room Air Room Air Room Air Room Air O2 Flow Rate 2.0 11/29/18 11/29/18 11/29/18 11/29/18 07:00 07:00 08:00 09:00 Temp 97.7 97.7 97.7 97.7 Pulse 93 101 84 88 Resp 18 25 12 21 B/P (MAP) 137/95 (109) 103/53 (70) 137/95 (109) 150/95 (113) Pulse Ox 96 98 O2 Delivery Room Air Room Air Room Air Room Air 11/29/18 10:00 Temp 98.4 98.4 Pulse 91 Resp 15 B/P (MAP) 145/86 (105) Pulse Ox 97 O2 Delivery Room Air Intake and Output 11/28/18 11/28/18 11/29/18 15:00 23:00 07:00 Intake Total 1450 ml 1000 ml Output Total 200 ml 200 ml 100 ml Balance 1250 ml 800 ml -100 ml AUDIE MEJIA MD Nov 29, 2018 10:23
[2018-11-29] MEDS: LACTOBACILLUS RHAMNOSUS GG 1 CAPSULE. PO SCH ×2 (10:36→21:02)
[2018-11-29] MEDS: QUEtiapine 25 MG TABLET. PO SCH (10:36)
--- NOTE | 2018-11-29 13:36 | PDOC ---
PROGRESS NOTES Assessment Assessment Metabolic encephalopathy. Lactic acidosis. Leukocytosis Behavior problems. Explosive behavior. Cognitive disability. Impulsive disorders. Autism. ADHD. Obesity. RECOMMENDATIONS/PLAN: Treat medical diseases. Consulted ID for leukocytosis. Seroquel 12.5 mg daily. HISTORY OF THE PRESENT ILLNESS: This is a 33-year-old male patient with history of cognitive disability, behavior problems, autism was found down naked in the common area in assisted on 11/27/18. He was noted altered mental status changes as well. His mentation changes was noted by complaint investigations officer who called for the EMS. No notation of respiratory distress nor CP. He is unable to provide information only speaks "yes" or "no" at the present time. PAST MEDICAL HISTORY CENTRAL NERVOUS SYSTEM: Other (cognitive disability) GI: GERD, Other (hiatal hernia) Psych: Other (autism; impulsive disorder, ADHD) PAST SURGICAL HISTORY No major surgery recently. FAMILY HISTORY Unknown SOCIAL HISTORY Smoke: No ALCOHOL: none Drugs: None Lives: [facility] (assisted) ALLERGY: Unknown MEDICATIONS: Refer to MAR REVIEW OF SYSTEMS: Constitutional: Obesity. Head: No recent traumatic brain or head injury. Skin: No edema. Eyes: No vision loss or color blindness. Nose: No bleeding or purulent discharges. Hearing: No hearing decrease. The rest is unknown. PHYSICAL EXAMINATION: General appearance is having explosive behavior. HEENT: Normocephalic and nontraumatic. Eyes, nose, ears, and throat are unremarkable. Neck is supple. No lymphadenopathy. No crepitus. Cardiovascular: S1, S2, regular rate and rhythm. Pulmonary: Clear to auscultation bilaterally. Abdomen: Bowel sounds are positive. Abdomen is soft, nontender, and nondistended. Extremities: No rash, or edema. No restriction of range of motion NEUROLOGICAL EXAMINATION: Awake. Sitting in chair. Able to understand a few questions. Not able to follow commands. Not oriented to time, place and person. Not talks. PERRL. EOMI. CN: no focal findings. Muscle tone: increased in left side, chronic. Muscle strength: 5 DTR: 2-3. Plantar reflex: Flexor response bilaterally Gait: able to walk. Sensory exam: withdraw response to stimuli. No acute cerebellar signs elicited. F-T-N test not performed due to not follow commands. Objective Objective Vital Signs Date Time Temp Pulse Resp B/P (MAP) Pulse Ox O2 Delivery O2 Flow Rate FiO2 11/29/18 13:02 95 19 133/92 (106) 98 Room Air 11/29/18 10:00 98.4 98.4 11/29/18 06:00 2.0 Intake and Output 11/29/18 07:00 Intake Total 2450 ml Output Total 500 ml Balance 1950 ml Intake Oral 1350 ml IV Total 1100 ml Output Urine Total 500 ml # Voids 10 Vitals Signs Vitals VS - Last 72 Hours, by Label Date Time Temp Pulse Resp B/P (MAP) Pulse Ox O2 Delivery O2 Flow Rate FiO2 11/29/18 13:02 95 19 133/92 (106) 98 Room Air 11/29/18 12:00 Room Air 11/29/18 11:00 91 19 145/92 (109) Room Air 11/29/18 10:00 98.4 91 15 145/86 (105) 97 Room Air 98.4 11/29/18 09:00 88 21 150/95 (113) 98 Room Air 11/29/18 08:00 Room Air 11/29/18 08:00 84 12 137/95 (109) Room Air 11/29/18 07:00 97.7 101 25 103/53 (70) 96 Room Air 97.7 11/29/18 07:00 97.7 93 18 137/95 (109) Room Air 97.7 11/29/18 06:00 76 12 98/67 (77) 95 Room Air 2.0 11/29/18 05:20 98.5 76 14 98/67 (77) 95 Room Air 98.5 11/29/18 04:00 Room Air 11/29/18 04:00 98.9 76 11 103/70 (81) Room Air 98.9 11/29/18 03:20 98.9 87 12 108/70 (83) 95 Room Air 98.9 11/29/18 02:00 98.9 79 12 117/64 (81) 95 Room Air 98.9 11/29/18 01:07 66 14 118/66 (83) Room Air 11/29/18 00:01 84 14 104/55 (71) Room Air 11/28/18 23:59 Room Air 11/28/18 22:00 76 107/75 (86) 95 Room Air 11/28/18 21:00 80 125/64 (84) 97 Room Air 11/28/18 20:00 Room Air 11/28/18 20:00 96 144/94 (111) 94 Room Air 11/28/18 19:00 98.9 96 149/74 (99) 95 Room Air 98.9 11/28/18 18:00 98.2 114 149/89 (109) 98 Room Air 2.0 98.2 11/28/18 17:00 114 149/89 (109) Room Air 11/28/18 16:13 104 12 135/83 (100) 98 Room Air 11/28/18 16:00 Room Air 11/28/18 15:18 101 14 143/90 (107) 98 Room Air 11/28/18 14:00 101 14 114/69 (84) 98 Room Air 11/28/18 13:00 102 14 116/72 (87) 97 Room Air 11/28/18 12:00 Room Air 11/28/18 12:00 102 12 113/73 (86) 94 Room Air 11/28/18 11:00 106 11 145/93 (110) 93 Room Air 11/28/18 10:00 100 11 94 Room Air 11/28/18 09:00 90 11 110/66 (81) 94 Room Air 11/28/18 08:00 Room Air 11/28/18 08:00 86 11 117/67 (84) 95 Room Air 11/28/18 07:00 74 11 97/56 (70) 96 11/28/18 07:00 86 11 104/60 (75) 95 Room Air Laboratory Laboratory Laboratory Tests Test 11/28/18 14:15 11/29/18 03:20 Troponin I Quantitative 0.019 ng/mL (0.000-0.055) White Blood Count 9.9 x10^3/uL (4.0-11.0) Red Blood Count 5.08 x10^6/uL (4.30-5.70) Hemoglobin 14.9 g/dL (13.0-17.5) Hematocrit 46.1 % (39.0-53.0) Mean Corpuscular Volume 91 fL (79-100) Mean Corpuscular Hemoglobin 29 pg (25-35) Mean Corpuscular Hemoglobin Concent 32 g/dL (31-37) Red Cell Distribution Width 13.9 % (11.5-14.5) Platelet Count 272 x10^3/uL (140-400) Neutrophils (%) (Auto) 58 % (31-73) Lymphocytes (%) (Auto) 32 % (24-48) Monocytes (%) (Auto) 8 % (0-9) Eosinophils (%) (Auto) 1 % (0-3) Basophils (%) (Auto) 1 % (0-3) Neutrophils # (Auto) 5.7 x10^3uL (1.8-7.7) Lymphocytes # (Auto) 3.2 x10^3/uL (1.0-4.8) Monocytes # (Auto) 0.8 x10^3/uL (0.0-1.1) Eosinophils # (Auto) 0.1 x10^3/uL (0.0-0.7) Basophils # (Auto) 0.1 x10^3/uL (0.0-0.2) Sodium Level 142 mmol/L (136-145) Potassium Level 3.8 mmol/L (3.5-5.1) Chloride Level 105 mmol/L (98-107) Carbon Dioxide Level 26 mmol/L (21-32) Anion Gap 11 (6-14) Blood Urea Nitrogen 11 mg/dL (8-26) Creatinine 1.3 mg/dL (0.7-1.3) Estimated GFR (Cockcroft-Gault) 63.2 BUN/Creatinine Ratio 8 (6-20) Glucose Level 101 mg/dL (70-99) Calcium Level 8.5 mg/dL (8.5-10.1) Total Bilirubin 1.5 mg/dL (0.2-1.0) Aspartate Amino Transf (AST/SGOT) 16 U/L (15-37) Alanine Aminotransferase (ALT/SGPT) 22 U/L (16-63) Alkaline Phosphatase 53 U/L (46-116) Total Protein 7.2 g/dL (6.4-8.2) Albumin 3.4 g/dL (3.4-5.0) Albumin/Globulin Ratio 0.9 (1.0-1.7) Microbiology 11/28/18 Blood Culture - Preliminary, Resulted NO GROWTH AFTER 1 DAY Medication Medications Current Medications Quetiapine Fumarate (SEROquel) 12.5 mg DAILY PO Last administered on 11/29/18at 10:36; Start 11/28/18 at 17:00 Vancomycin HCl (Vancomycin Trough Level) 1 each 1X ONCE MC ; Start 11/29/18 at 13:30; Stop 11/29/18 at 13:30; Status DC Vancomycin HCl 1.5 gm/Sodium Chloride 500 ml @ 250 mls/hr Q12H IV ; Start 11/29 at 02:00; Stop 11/29/18 at 02:00; Status DC Comment Review of Relevant I have reviewed the following items minor (where applicable) has been applied. KENYA MARLEY MD Nov 29, 2018 13:36
--- NOTE | 2018-11-29 14:54 | RAD ---
EXAM: Left hand, 3 views. HISTORY: Foreign body. COMPARISON: None. FINDINGS: 3 views of the left hand are obtained. There is no fracture, dislocation or subluxation. No radiodense foreign body is seen. IMPRESSION: No acute osseous finding. Electronically signed by: Aisha Mckeon MD (11/29/2018 2:51 PM) [facility]
--- NOTE | 2018-11-29 21:43 | EEG ---
DATE OF SERVICE: 11/29/2018 EEG NUMBER: [id number] This is a 33-year-old male patient with history of intellectual disability, behavior problem and autism. He was found down in the [facility]. EEG was requested to help rule out seizure. METHODS: Twenty electrodes were applied according to the international 10-20 electrode placement system. EKG monitoring, hyperventilation, intermittent photic stimulation, monopolar and bipolar montages were routinely utilized. The record was obtained on a digital system with video monitoring. FINDINGS: 1. Background: The patient was recorded in the awake and drowsy states. No actual sleep state was recorded. The posterior dominant rhythm of 6 Hz was observed. 2. Abnormalities: No specific epileptiform discharge or electrographic seizure was seen. No focal or diffuse slowing, significant artifact noted. 3. Activation: Hyperventilation was not performed because the patient was unable to follow the commands. Intermittent photic stimulation was performed with photic driving. No specific epileptiform discharge or electrographic seizure induced by intermittent photic stimulation. IMPRESSION: This EEG falls into the abnormal category of the study for the awake and drowsy states. No actual sleep state was recorded. The posterior dominant rhythm of 6 Hz is slow for age. No focal, lateralizing, specific epileptiform discharge or electrographic seizure is seen. KENYA MARLEY MD DR: NEVILLE/liz JOB#: [id number] / [id number] VERA
[2018-11-30 03:00] VITALS: BP 129/87
[2018-11-30] MEDS: PIPERACILLIN/TAZOBACTAM 3.375 GM in IV NORMAL SALINE 50ML 50 ML IV SCH (05:41)
[2018-11-30 07:00] VITALS: BP 116/82
[2018-11-30] MEDS ORDERED: CEPH-264 PO (09:05)
[2018-11-30] MEDS: QUEtiapine 25 MG TABLET. PO SCH (09:05)
[2018-11-30] MEDS: LACTOBACILLUS RHAMNOSUS GG 1 CAPSULE. PO SCH (09:05)
--- NOTE | 2018-11-30 10:25 | PDOC3 ---
Discharge Summary Visit Information Date of Admission: Nov 27, 2018 Date of Discharge: Nov 30, 2018 Admitting Diagnosis Comment: Autism, lives in a correction Laceration/trauma to hands from punching window glass at home Hypokalemia resolved AK I resolved Sepsis, no organ dysfunction Final Diagnosis Problems Medical Problems: (1) Elevated lactic acid level Status: Acute Brief Hospital Course Allergies Allergies Coded Allergies Type Severity Reaction Last Updated Verified No Known Drug Allergies 03/26/14 No Vital Signs Vital Signs Date Time Temp Pulse Resp B/P (MAP) Pulse Ox O2 Delivery O2 Flow Rate FiO2 11/30/18 08:00 Room Air 2.0 11/30/18 07:00 98.2 71 12 116/82 (93) 97 98.2 Lab Results Laboratory Tests Test 11/28/18 12:45 11/28/18 14:15 11/29/18 03:20 Lactic Acid Level 1.4 mmol/L (0.4-2.0) Troponin I Quantitative 0.019 ng/mL (0.000-0.055) White Blood Count 9.9 x10^3/uL (4.0-11.0) Red Blood Count 5.08 x10^6/uL (4.30-5.70) Hemoglobin 14.9 g/dL (13.0-17.5) Hematocrit 46.1 % (39.0-53.0) Mean Corpuscular Volume 91 fL (79-100) Mean Corpuscular Hemoglobin 29 pg (25-35) Mean Corpuscular Hemoglobin Concent 32 g/dL (31-37) Red Cell Distribution Width 13.9 % (11.5-14.5) Platelet Count 272 x10^3/uL (140-400) Neutrophils (%) (Auto) 58 % (31-73) Lymphocytes (%) (Auto) 32 % (24-48) Monocytes (%) (Auto) 8 % (0-9) Eosinophils (%) (Auto) 1 % (0-3) Basophils (%) (Auto) 1 % (0-3) Neutrophils # (Auto) 5.7 x10^3uL (1.8-7.7) Lymphocytes # (Auto) 3.2 x10^3/uL (1.0-4.8) Monocytes # (Auto) 0.8 x10^3/uL (0.0-1.1) Eosinophils # (Auto) 0.1 x10^3/uL (0.0-0.7) Basophils # (Auto) 0.1 x10^3/uL (0.0-0.2) Sodium Level 142 mmol/L (136-145) Potassium Level 3.8 mmol/L (3.5-5.1) Chloride Level 105 mmol/L (98-107) Carbon Dioxide Level 26 mmol/L (21-32) Anion Gap 11 (6-14) Blood Urea Nitrogen 11 mg/dL (8-26) Creatinine 1.3 mg/dL (0.7-1.3) Estimated GFR (Cockcroft-Gault) 63.2 BUN/Creatinine Ratio 8 (6-20) Glucose Level 101 mg/dL (70-99) Calcium Level 8.5 mg/dL (8.5-10.1) Total Bilirubin 1.5 mg/dL (0.2-1.0) Aspartate Amino Transf (AST/SGOT) 16 U/L (15-37) Alanine Aminotransferase (ALT/SGPT) 22 U/L (16-63) Alkaline Phosphatase 53 U/L (46-116) Total Protein 7.2 g/dL (6.4-8.2) Albumin 3.4 g/dL (3.4-5.0) Albumin/Globulin Ratio 0.9 (1.0-1.7) Brief Hospital Course Mr. Cadet is a 33 old autistic male who lives in a correction, punched some glass windows in correction hence brought to the ER and was admitted, fulfilled sepsis criteria hence started on Zosyn . But all infectious workup is negative. GOt 3 L bolus bec of sepsis protocol He has minor abrasions and some lacerations in his left hand which did not need any suturing. Patient is back to his baseline, smiling all the time, eating food without assistance. Go back to go back to correction by mouth Keflex on chart pt seen and examined, discussed with RN at bedside Discharge Information Condition at Discharge: Improved, Stable Disposition/Orders: Other (correction) Scheduled Amlodipine Besylate (Amlodipine Besylate) 10 Mg Tablet, 10 MG PO DAILY for medical management, (Reported) Entered as Reported by: JAVED SMYTH on 11/28/18250 Last Action: New Order on 11/28/18250 by JAVED SMYTH Aripiprazole (Abilify) 30 Mg Tablet, 30 MG PO DAILY, (Reported) Entered as Reported by: ISHA DIGGS on 03/17/14938 Benztropine Mesylate (Benztropine Mesylate) 2 Mg Tablet, 2 MG PO DAILY, ( Reported) Entered as Reported by: ISHA DIGGS on 03/17/14938 Last Action: Reviewed on 11/28/18253 by JAVED SMYTH Cephalexin (Keflex) 500 Mg Capsule, 1 CAP PO TID for hand injury, #21 Prescribed by: ANÍBAL VELIZ on 11/30/18904 Clonazepam (Clonazepam) 2 Mg Tablet, 2 MG PO BID, (Reported) Entered as Reported by: ISHA DIGGS on 03/17/14938 Clonazepam (Clonazepam) 0.5 Mg Tablet, 1 TAB PO BID for medical management, #60 Ref 1 (Reported) Entered as Reported by: JAVED SMYTH on 11/28/18250 Last Action: New Order on 11/28/18250 by JAVED SMYTH Clonidine Hcl (Clonidine Hcl) 0.1 Mg Tablet, 0.1 MG PO BID for medical managment , (Reported) Entered as Reported by: JAVED SMYTH on 11/28/18253 Last Action: New Order on 11/28/18253 by JAVED SMYTH Divalproex Sodium (Divalproex Sodium) 500 Mg Tablet.dr, 500 MG PO DAILY, ( Reported) Entered as Reported by: ISHA DIGGS on 03/17/14938 Gabapentin (Gabapentin) 600 Mg Tablet, 600 MG PO TID, (Reported) Entered as Reported by: ISHA DIGGS on 03/17/14938 Gabapentin (Gabapentin) 600 Mg Tablet, 600 MG PO QID for NEUROGENIC PAIN, ( Reported) Entered as Reported by: JAVED SMYTH on 11/28/18250 Last Action: New Order on 11/28/18250 by JAVED SMYTH Lactulose (Lactulose) 20 Gm/30 Ml Solution, 10 GM PO BID for bowel movement, ( Reported) Entered as Reported by: JAVED SMYTH on 11/28/18253 Last Action: New Order on 11/28/18253 by JAVED SMYTH Lisinopril (Lisinopril) 5 Mg Tablet, 1 TAB PO DAILY for medical management, #30 Ref 5 (Reported) Entered as Reported by: JAVED SMYTH on 11/28/18250 Last Action: New Order on 11/28/18250 by JAVED SMYTH Lorazepam (Lorazepam) 0.5 Mg Tablet, 1 TAB PO BID for medical management, #60 ( Reported) Entered as Reported by: JAVED SMYTH on 11/28/18250 Last Action: New Order on 11/28/18250 by JAVED SMYTH Lurasidone Hcl (Latuda) 80 Mg Tablet, 1 TAB PO QHS for medical management, #30 ( Reported) Entered as Reported by: JAVED SMYTH on 11/28/18250 Last Action: New Order on 11/28/18250 by JAVED SMYTH Miscellaneous Medications Acetaminophen (Acetaminophen) 500 Mg Tablet, 500 MG PO, (Reported) Entered as Reported by: ISHA DIGGS on 03/17/14 0939 Loxapine Succinate (Loxapine) 10 Mg Capsule, 10 MG PO, (Reported) Entered as Reported by: ISHA DIGGS on 03/17/14 0939 ANÍBAL VELIZ MD Nov 30, 2018 10:25
[2018-11-30 11:00] VITALS: BP 113/75
--- NOTE | 2018-11-30 11:21 | PDOC ---
Infectious Disease Note Subjective: Subjective PT without complaints no f/cn/v/abdo pain no headache ready for dc back to [facility] d./w RN ROS: ROS limited d/w RN Vital Signs: Vital Signs Vital Signs Date Time Temp Pulse Resp B/P (MAP) Pulse Ox O2 Delivery O2 Flow Rate FiO2 11/30/18 08:00 Room Air 2.0 11/30/18 07:00 98.2 71 12 116/82 (93) 97 98.2 Physical Exam: PHYSICAL EXAM GENERAL: Well-developed, well-nourished male, in no acute distress, smiling, appears comfortable, moving in bed without any difficulty. HEENT: Pupils equal, reactive. Extraocular movements are intact. Normal conjunctivae. No discharge. NECK: Supple. No JVD. LUNGS: Clear bilaterally. HEART: S1, S2, no murmurs. ABDOMEN: Limited, but soft, nontender. No rebound, no guarding. DERMATOLOGIC: Warm, dry. No generalized skin rash. Skin breakdown around the knuckles of both hands not secondarily infected. BACK: Normal curvature. No CVA tenderness. EXTREMITIES: No edema, no cyanosis. PSYCHIATRIC: Unable to assess. NEUROLOGIC: Alert , Moves all 4 extremities. Medications: Inpatient Meds: Current Medications Medications (Trade) Dose Ordered Sig/[facility] Start Time Stop Time Status Last Admin Dose Admin Aspirin (Children'S Aspirin) 324 mg 1X ONCE 11/27/18 23:45 11/27/18 23:46 DC 11/28/18 00:00 324 MG Cefazolin Sodium 50 ml @ 100 mls/hr 1X ONCE 11/27/18 22:45 11/27/18 23:14 DC 11/28/18 00:04 100 MLS/HR Diphtheria/ Tetanus/Acell Pertussis (Boostrix) 0.5 ml ONCE ONCE 11/27/18 22:45 11/27/18 22:46 DC 11/28/18 00:01 0.5 ML Dobutamine HCl/ Dextrose 250 ml @ 0 mls/hr CONT PRN 11/28/18 12:30 11/29/18 15:49 DC Lactobacillus Rhamnosus (Culturelle) 1 cap BID 11/28/18 10:00 11/30/18 09:05 1 CAP Lorazepam (Ativan) 2 mg PRN Q4HRS PRN 11/27/18 23:45 11/29/18 23:13 2 MG Norepinephrine Bitartrate 250 ml @ 0 mls/hr CONT PRN 11/28/18 12:30 11/29/18 15:49 DC Piperacillin Sod/ Tazobactam Sod (Zosyn Per Pharmacy) 1 each PRN DAILY PRN 11/28/18 01:15 Piperacillin Sod/ Tazobactam Sod 3.375 gm/Sodium Chloride 50 ml @ 100 mls/hr Q6HRS 11/28/18 06:00 11/30/18 09:05 DC 11/30/18 05:41 100 MLS/HR Quetiapine Fumarate (SEROquel) 12.5 mg DAILY 11/28/18 17:00 11/30/18 09:05 12.5 MG Sodium Chloride 500 ml @ 1,000 mls/hr PRN Q30MIN PRN 11/28/18 12:30 Vancomycin HCl (Vanco Per Pharmacy) 1 each PRN DAILY PRN 11/28/18 12:30 11/28/18 14:32 DC 11/28/18 14:09 1 EACH Vancomycin HCl (Vancomycin Trough Level) 1 each 1X ONCE 11/29/18 13:30 11/29/18 13:30 DC Vancomycin HCl 1.5 gm/Sodium Chloride 500 ml @ 250 mls/hr Q12H 11/29/18 02:00 11/29/18 02:00 DC Vancomycin HCl 2 gm/Sodium Chloride 500 ml @ 250 mls/hr 1X ONCE 11/28/18 13:00 11/28/18 14:59 DC 11/28/18 13:47 250 MLS/HR Ziprasidone (Geodon Im) 20 mg STK-MED ONCE 11/28/18 06:35 11/28/18 06:36 DC Objective: Assessment: Altered mental status likely metabolic , resolved Leucocytosis resolved abdo pain,Nausea resolved abdo ct neg Cognitive disability hematuria SUE likely dehydration resolved hand lacerations no signs of infection Plan: Plan of Care ok to dc on keflex local wound care d/w KARIE PATEL MD Nov 30, 2018 11:21
[2018-11-30] MEDS ORDERED: ONDANSETRON ODT 4 MG TAB.RAPDIS. PO ONE (14:45)
[2018-11-30] MEDS ORDERED: LOPERAMIDE 2 MG CAPSULE PO ONE (14:45)
[2018-11-30 15:00] VITALS: BP 115/72
--- NOTE | 2018-11-30 16:36 | PDOC ---
PROGRESS NOTES Assessment Assessment Metabolic encephalopathy. Lactic acidosis. Leukocytosis Behavior problems. Explosive behavior. Cognitive disability. Impulsive disorders. Autism. ADHD. Obesity. RECOMMENDATIONS/PLAN: Treat medical diseases. Consulted ID for leukocytosis. Continue Seroquel 12.5 mg daily. FU with PCP. FU with Neurology as needed. HISTORY OF THE PRESENT ILLNESS: This is a 33-year-old male patient with history of cognitive disability, behavior problems, autism was found down naked in the common area in [facility] on 11/27/18. He was noted altered mental status changes as well. His mentation changes was noted by hardboard press operator who called for the EMS. No notation of respiratory distress nor CP. He is unable to provide information only speaks "yes" or "no" at the present time. PAST MEDICAL HISTORY CENTRAL NERVOUS SYSTEM: Other (cognitive disability) GI: GERD, Other (hiatal hernia) Psych: Other (autism; impulsive disorder, ADHD) PAST SURGICAL HISTORY No major surgery recently. FAMILY HISTORY Unknown SOCIAL HISTORY Smoke: No ALCOHOL: none Drugs: None Lives: [facility] ([facility]) ALLERGY: Unknown MEDICATIONS: Refer to MAR REVIEW OF SYSTEMS: Constitutional: Obesity. Head: No recent traumatic brain or head injury. Skin: No edema. Eyes: No vision loss or color blindness. Nose: No bleeding or purulent discharges. Hearing: No hearing decrease. The rest is unknown. PHYSICAL EXAMINATION: General appearance is having explosive behavior. HEENT: Normocephalic and nontraumatic. Eyes, nose, ears, and throat are unremarkable. Neck is supple. No lymphadenopathy. No crepitus. Cardiovascular: S1, S2, regular rate and rhythm. Pulmonary: Clear to auscultation bilaterally. Abdomen: Bowel sounds are positive. Abdomen is soft, nontender, and nondistended. Extremities: No rash, or edema. No restriction of range of motion NEUROLOGICAL EXAMINATION: Awake. Sitting in chair. Able to understand a few questions. Not able to follow commands. Not oriented to time, place and person. Not talks. PERRL. EOMI. CN: no focal findings. Muscle tone: increased in left side, chronic. Muscle strength: 5 DTR: 2-3. Plantar reflex: Flexor response bilaterally Gait: able to walk. Sensory exam: withdraw response to stimuli. No acute cerebellar signs elicited. F-T-N test not performed due to not follow commands. Objective Objective Vital Signs Date Time Temp Pulse Resp B/P (MAP) Pulse Ox O2 Delivery O2 Flow Rate FiO2 11/30/18 15:00 98.4 72 115/72 (86) 99 Room Air 2.0 98.4 11/30/18 11:00 12 Intake and Output 11/30/18 07:00 Intake Total 3650 ml Output Total 300 ml Balance 3350 ml Intake Oral 3500 ml IV Total 150 ml Output Urine Total 300 ml # Voids 9 # Bowel Movements 1 Vitals Signs Vitals VS - Last 72 Hours, by Label Date Time Temp Pulse Resp B/P (MAP) Pulse Ox O2 Delivery O2 Flow Rate FiO2 11/30/18 15:00 98.4 72 115/72 (86) 99 Room Air 2.0 98.4 11/30/18 11:00 98.2 82 12 113/75 (88) 99 Room Air 2.0 98.2 11/30/18 08:00 Room Air 2.0 11/30/18 07:00 98.2 71 12 116/82 (93) 97 Room Air 2.0 98.2 11/30/18 03:00 98.5 78 16 129/87 (101) 95 Room Air 98.5 11/29/18 23:06 99.1 79 18 161/102 (121) 97 Room Air 99.1 11/29/18 19:05 98.4 71 16 122/80 (94) 96 Room Air 98.4 11/29/18 19:00 Room Air 11/29/18 15:06 80 19 118/69 (85) 96 Room Air 11/29/18 14:00 98 19 140/88 (105) 99 Room Air 11/29/18 13:02 95 19 133/92 (106) 98 Room Air 11/29/18 12:00 Room Air 11/29/18 11:00 91 19 145/92 (109) Room Air 11/29/18 10:00 98.4 91 15 145/86 (105) 97 Room Air 98.4 11/29/18 09:00 88 21 150/95 (113) 98 Room Air 11/29/18 08:00 Room Air 11/29/18 08:00 84 12 137/95 (109) Room Air 11/29/18 07:00 97.7 101 25 103/53 (70) 96 Room Air 97.7 11/29/18 07:00 97.7 93 18 137/95 (109) Room Air 97.7 Laboratory Laboratory Microbiology 11/28/18 Blood Culture - Preliminary, Resulted NO GROWTH AFTER 2 DAYS Medication Medications Current Medications Loperamide HCl (Imodium) 2 mg 1X ONCE PO ; Start 11/30/18 at 14:45; Stop at 14:46; Status DC Ondansetron HCl (Zofran Odt) 4 mg 1X ONCE PO Last administered on 11/30/18at 15 :05; Start 11/30/18 at 14:45; Stop 11/30/18 at 14:46; Status DC Comment Review of Relevant I have reviewed the following items minor (where applicable) has been applied. KENYA MARLEY MD Nov 30, 2018 16:36
== END 2018-11-30 17:35 | disposition home or self-care (01) | DRG 871 ==
LOC: ER 22:03 → 1 WEST ICU 23:45 → 6 SOUTH 11-29 15:47 → UNDODISIN 11-30 11:45
PROVIDERS: ADMIT Internal Medicine; ATTEND Internal Medicine
DX: A41.9 Sepsis, unspecified organism (principal); G93.41 Metabolic encephalopathy; I21.4 Non-ST elevation (NSTEMI) myocardial infarction; R65.21 Severe sepsis with septic shock; N17.9 Acute kidney failure, unspecified; E87.2 Acidosis; F84.0 Autistic disorder; S61.419A Laceration without foreign body of unspecified hand, initial encounter; M53.82 Other specified dorsopathies, cervical region; E86.0 Dehydration; R45.87 Impulsiveness; R31.9 Hematuria, unspecified; E87.6 Hypokalemia; K21.9 Gastro-esophageal reflux disease without esophagitis; F90.9 Attention-deficit hyperactivity disorder, unspecified type; E66.9 Obesity, unspecified; Z68.35 Body mass index [BMI] 35.0-35.9, adult; Y93.89 Activity, other specified; Y92.89 Other specified places as the place of occurrence of the external cause; Y99.8 Other external cause status; Z87.891 Personal history of nicotine dependence; Z79.899 Other long term (current) drug therapy; Z84.89 Family history of other specified conditions
CPT/HCPCS: 12001; 36415; 70450; 71045; 72125; 73130; 74176; 80048; 80053; 80061; 80307; 81001; 83605; 83735; 83880; 84145; 84443; 84484; 85007; 85025; 85379; 85384; 85610; 85730; 87040; 87641; 90471; 90715; 93005; 93306; 95816; 96365; G0480; J0690; J2060; J2543; J3370; J7030; J7040; Q0162; 99291-25

== ENCOUNTER 2019-03-10 18:06 | Emergency (ER) | payer MEDICARE, MEDICAID ==
[~2019-03-10] VITALS: Ht 182.9 cm; Wt 113.4 kg
[~2019-03-10 18:06] MED LIST changes: +AMLO10TA8 PO; +CEPH-264 PO; +CLON0.1T PO; +CLON0.5T11 PO; +LACT20SO PO; +LISI-338 PO; +LORA0.5T PO; +LURA80TA PO
[2019-03-10] MEDS ORDERED: IV NORMAL SALINE 1000ML BAG 1,000 ML IV ONE (18:15)
--- NOTE | 2019-03-10 18:43 | PHYS DOC ---
Past Medical History Past Medical History: Other Additional Past Medical Histor: behavioral disorder, explosive disorder, autism Past Surgical History: No Surgical History Alcohol Use: None Drug Use: None Adult General HPI HPI Patient is a 34 year old male with past medical history of intellectual disability, ADHD, seizure disorder, and cardiovascular disease, presents with tremors and a potential seizure lasting 7-10 minutes according to caretakers. They state the patient was found on his stomach after lunch with upper extre mities and lower extremities shaking mildly bilaterally. They state he had an episode of urinary incontinence and vomiting during this episode. Immediately after the shaking stopped he stood up and entry specialist stated he exhibited a upper gaze and was not responsive to questioning. While in route via EMS patient began to shake again. Patient has decreased verbal skills at baseline commonly exhibiting one-word responses. It Senior Software Engineer [employer] states this is his first seizure in several years. They deny any recent medication changes sicknesses or any other obvious identifiable cause for today's seizure. The patient is unable to offer any further information. Review of Systems Review of Systems Patient unable to respond to questioning. Current Medications Current Medications Current Medications Medications (Trade) Dose Ordered Sig/Manuel Start Time Stop Time Status Last Admin Dose Admin Levetiracetam (Keppra) 500 mg 1X ONCE 03/10/19 22:00 03/10/19 22:01 DC 03/10/19 22:38 500 MG Lorazepam (Ativan Inj) 2 mg 1X ONCE 03/10/19 19:30 03/10/19 19:33 DC 03/10/19 19:32 2 MG Sodium Chloride 1,000 ml @ 1,000 mls/hr 1X ONCE 03/10/19 18:15 03/10/19 19:14 DC 03/10/19 18:59 1,000 MLS/HR Ziprasidone (Geodon Im) 10 mg 1X ONCE 03/10/19 20:30 03/10/19 20:31 DC 03/10/19 20:15 10 MG Allergies Allergies Allergies Coded Allergies Type Severity Reaction Last Updated Verified No Known Drug Allergies 03/26/14 No Physical Exam Physical Exam Constitutional: Non-verbal, agitated 34 yo male HENT: Normocephalic, atraumatic, oropharynx moist Eyes: PER decreased reactivity to light. Fixed, upper-left gaze. EOM unable to assess. Conjunctiva normal, no discharge Neck: Fixed in left rotated position. Tenderness difficult to assess d/t lack of patient response, supple Cardiovascular: Heart rate normal, regular rhythm Lungs & Thorax: Bilateral breath sounds clear to auscultation, no wheezing Abdomen: Soft, no bruising or erythema. Skin: Warm, clammy, no erythema, no rash Extremities: ROM intact, no edema Neurologic: Alert and oriented X 1, no response to verbal commands, unable to asses sensory function, fixed left-upward gaze Psychologic: flat affect. mood normal Current Patient Data Vital Signs Vital Signs Date Time Temp Pulse Resp B/P (MAP) Pulse Ox O2 Delivery O2 Flow Rate FiO2 03/10/19 23:27 118 16 99 03/10/19 18:06 99.1 161/95 (117) Room Air 99.1 Lab Values Laboratory Tests Test 03/10/19 18:35 03/10/19 21:20 03/10/19 21:21 White Blood Count 9.3 x10^3/uL (4.0-11.0) Red Blood Count 5.30 x10^6/uL (4.30-5.70) Hemoglobin 16.2 g/dL (13.0-17.5) Hematocrit 47.7 % (39.0-53.0) Mean Corpuscular Volume 90 fL (79-100) Mean Corpuscular Hemoglobin 31 pg (25-35) Mean Corpuscular Hemoglobin Concent 34 g/dL (31-37) Red Cell Distribution Width 13.8 % (11.5-14.5) Platelet Count 293 x10^3/uL (140-400) Neutrophils (%) (Auto) 55 % (31-73) Lymphocytes (%) (Auto) 33 % (24-48) Monocytes (%) (Auto) 10 % (0-9) H Eosinophils (%) (Auto) 2 % (0-3) Basophils (%) (Auto) 1 % (0-3) Neutrophils # (Auto) 5.1 x10^3uL (1.8-7.7) Lymphocytes # (Auto) 3.1 x10^3/uL (1.0-4.8) Monocytes # (Auto) 0.9 x10^3/uL (0.0-1.1) Eosinophils # (Auto) 0.2 x10^3/uL (0.0-0.7) Basophils # (Auto) 0.1 x10^3/uL (0.0-0.2) Prothrombin Time 12.4 SEC (11.7-14.0) Prothrombin Time INR 1.0 (0.8-1.1) PTT 30 SEC (24-38) Lactic Acid Level 2.0 mmol/L (0.4-2.0) Urine Collection Type Void Urine Color Yellow Urine Clarity Clear Urine pH 6.5 Urine Specific [place] 1.010 Urine Protein Negative mg/dL (NEG-TRACE) Urine Glucose (UA) Negative mg/dL (NEG) Urine Ketones (Stick) Negative mg/dL (NEG) Urine Blood Negative (NEG) Urine Nitrite Negative (NEG) Urine Bilirubin Negative (NEG) Urine Urobilinogen Dipstick 0.2 mg/dL (0.2 mg/dL) Urine Leukocyte Esterase Negative (NEG) Urine RBC 0 /HPF (0-2) Urine WBC 0 /HPF (0-4) Urine Squamous Epithelial Cells Few /LPF Urine Bacteria 0 /HPF (0-FEW) Urine Opiates Screen Neg (NEG) Urine Methadone Screen Neg (NEG) Urine Barbiturates Neg (NEG) Urine Phencyclidine Screen Neg (NEG) Urine Amphetamine/Methamphetamine Neg (NEG) Urine Benzodiazepines Screen Neg (NEG) Urine Cocaine Screen Neg (NEG) Urine Cannabinoids Screen Neg (NEG) Urine Ethyl Alcohol Neg (NEG) Sodium Level 138 mmol/L (136-145) Potassium Level 4.1 mmol/L (3.5-5.1) Chloride Level 104 mmol/L (98-107) Carbon Dioxide Level 26 mmol/L (21-32) Anion Gap 8 (6-14) Blood Urea Nitrogen 16 mg/dL (8-26) Creatinine 1.2 mg/dL (0.7-1.3) Estimated GFR (Cockcroft-Gault) 68.9 BUN/Creatinine Ratio 13 (6-20) Glucose Level 99 mg/dL (70-99) Calcium Level 9.4 mg/dL (8.5-10.1) Magnesium Level 2.1 mg/dL (1.8-2.4) Total Bilirubin 0.5 mg/dL (0.2-1.0) Aspartate Amino Transferase (AST) 14 U/L (15-37) L Alanine Aminotransferase (ALT) 28 U/L (16-63) Alkaline Phosphatase 59 U/L (46-116) Creatine Kinase 76 U/L (39-308) Total Protein 7.9 g/dL (6.4-8.2) Albumin 4.1 g/dL (3.4-5.0) Albumin/Globulin Ratio 1.1 (1.0-1.7) Valproic Acid Level < 3 mcg/mL (50-100) L Valproic Acid Last Dose Date Unknown Valproic Acid Last Dose Time Unknown Laboratory Tests 03/10/19 18:35 Laboratory Tests 03/10/19 21:21 EKG EKG 03/10/2019 @ 20:40 shows sinus tachycardia at 113bpm. No ST elevations. Radiology/Procedures Radiology/Procedures PROCEDURE: CT HEAD AND CERVICAL SPINE [facility] Compliance statement: One or more of the following individualized dose reduction techniques were utilized for this examination: 1. Automated exposure control. 2. Adjustment of the mA and/or kV according to patient size. 3. Use of iterative reconstruction technique. Indication:Seizure. Fall. TECHNIQUE: CT head without IV contrast COMPARISON: 11/27/2018 FINDINGS: No pathologic extra-axial or intra-axial fluid collection. The ventricles and basal cisterns are within normal limits. No acute intracranial bleed. No focal loss of muñoz-white differentiation. Orbits are within normal limits. No large scalp hematoma. No acute calvarial fracture. The paranasal sinuses and mastoid air cells are clear. IMPRESSION: 1. No acute intracranial bleed or calvarial fracture. Indication:Seizure. Fall. TECHNIQUE: CT of the cervical spine without IV contrast with multiplanar reformats. COMPARISON: 11/27/2018. FINDINGS: There is loss of normal cervical lordosis. This could be due to muscle spasm or positioning. Atlantoaxial joint interval is preserved. No compression deformity. Facet joints are in normal anatomic alignment. No acute fractures. Noncontrast appearance of the neck soft tissue is within normal limits. Clear lung apices. IMPRESSION: No acute fractures. Electronically signed by: Ned Reddy DO (03/10/2019 9:20 PM) [facility] Course & Med Decision Making Course & Med Decision Making Patient is a 34-year-old male with past medical history of intellectual disability cardiovascular risk factors and remote seizure disorder. Caretakers state he has not had a seizure in "several" years. Previously, patient was prescribed Depakote, but has not been on it for many months, due to lack of seizure occurrence. ECG showed sinus tachycardia, but no other concerning abnormalities. CT of head and neck failed to demonstrate in acute fractures. Ativan 2mg given to help calm patient. [id number]- Discussed case with Dr. Russell (neurologist) regarding patient's case. Recommend starting patient on Keppra 500mg BID and to follow up in office as outpatient. Patient stable for discharge with outpatient follow-up with PCP. Discussed findings and plan with patient's social services designee, who acknowledges understanding and agreement. Dragon Disclaimer Dragon Disclaimer This electronic medical record was generated, in whole or in part, using a voice recognition dictation system. Departure Departure Impression: Primary Impression: Seizure Disposition: 01 HOME, SELF-CARE Condition: IMPROVED Referrals: LYNN PACKER MD (PCP) KENYA RUSSELL MD Patient Instructions: Seizure, Adult Scripts Levetiracetam (KEPPRA) 500 Mg Tablet 500 MG PO BID for 14 Days, #28 TAB Prov: REY GARNER DO 03/10/19 REY GARNER DO Mar 10, 2019 18:43
[2019-03-10 18:55] LABS: BASO # 0.1 x10^3/uL (0.0-0.2); BASO % 1 % (0-3); EOS # 0.2 x10^3/uL (0.0-0.7); EOS % 2 % (0-3); HEMATOCRIT 47.7 % (39.0-53.0); HEMOGLOBIN 16.2 g/dL (13.0-17.5); LYMPH # 3.1 x10^3/uL (1.0-4.8); LYMPH % 33 % (24-48); MEAN CORPUSCULAR HEMOGLOBIN 31 pg (25-35); MEAN CORPUSCULAR HGB CONC 34 g/dL (31-37); MEAN CORPUSCULAR VOLUME 90 fL (79-100); MONO # 0.9 x10^3/uL (0.0-1.1); MONO % 10 % (0-9); NEUT # 5.1 x10^3uL (1.8-7.7); NEUT % 55 % (31-73); PLATELET COUNT 293 x10^3/uL (140-400); RED CELL DISTRIBUTION WIDTH 13.8 % (11.5-14.5); WHITE BLOOD COUNT 9.3 x10^3/uL (4.0-11.0)
[2019-03-10 19:04] LABS: PROTHROMBIN TIME PATIENT 12.4 SEC (11.7-14.0)
[2019-03-10] MEDS ORDERED: ZIPRASIDONE IM 20 MG VIAL. IM ONE (20:30)
--- NOTE | 2019-03-10 21:23 | RAD ---
[facility] Compliance statement: One or more of the following individualized dose reduction techniques were utilized for this examination: 1. Automated exposure control. 2. Adjustment of the mA and/or kV according to patient size. 3. Use of iterative reconstruction technique. Indication:Seizure. Fall. TECHNIQUE: CT head without IV contrast COMPARISON: 11/27/2018 FINDINGS: No pathologic extra-axial or intra-axial fluid collection. The ventricles and basal cisterns are within normal limits. No acute intracranial bleed. No focal loss of muñoz-white differentiation. Orbits are within normal limits. No large scalp hematoma. No acute calvarial fracture. The paranasal sinuses and mastoid air cells are clear. IMPRESSION: 1. No acute intracranial bleed or calvarial fracture. Indication:Seizure. Fall. TECHNIQUE: CT of the cervical spine without IV contrast with multiplanar reformats. COMPARISON: 11/27/2018. FINDINGS: There is loss of normal cervical lordosis. This could be due to muscle spasm or positioning. Atlantoaxial joint interval is preserved. No compression deformity. Facet joints are in normal anatomic alignment. No acute fractures. Noncontrast appearance of the neck soft tissue is within normal limits. Clear lung apices. IMPRESSION: No acute fractures. Electronically signed by: Ned Reddy DO (03/10/2019 9:20 PM) [facility]
[2019-03-10 21:32] LABS: BILIRUBIN,URINE NEGATIVE (NEG); CLARITY,URINE CLEAR; COLOR,URINE YELLOW; NITRITE,URINE NEGATIVE (NEG); PH,URINE 6.5; PROTEIN,URINE NEGATIVE (NEG-TRACE); UROBILINOGEN,URINE 0.2 mg/dL (0.2 mg/dL)
[2019-03-10 21:39] LABS: BACTERIA,URINE 0 /HPF (0-FEW); RBC,URINE 0 /HPF (0-2); SQUAMOUS EPITHELIAL CELL,UR FEW /LPF; WBC,URINE 0 /HPF (0-4)
[2019-03-10 21:40] LABS: BARBITURATES NEG (NEG); BENZODIAZEPINES NEG (NEG); CANNABINOIDS NEG (NEG); COCAINE NEG (NEG); METHADONE NEG (NEG); OPIATES NEG (NEG); PHENCYCLIDINE NEG (NEG)
[2019-03-10 21:41] LABS: ANION GAP 8 (6-14); BLOOD UREA NITROGEN 16 mg/dL (8-26); BUN/CREATININE RATIO 13 (6-20); CALCIUM 9.4 mg/dL (8.5-10.1); CARBON DIOXIDE 26 mmol/L (21-32); CHLORIDE 104 mmol/L (98-107); CREATININE 1.2 mg/dL (0.7-1.3); GFR 68.9; GLUCOSE 99 mg/dL (70-99); POTASSIUM 4.1 mmol/L (3.5-5.1); SODIUM 138 mmol/L (136-145)
[2019-03-10 21:41] LABS: AMPHETAMINE/METHAMPHETAMINE NEG (NEG)
[2019-03-10 21:48] LABS: ALBUMIN 4.1 g/dL (3.4-5.0); ALBUMIN/GLOBULIN RATIO 1.1 (1.0-1.7); ALK PHOS 59 U/L (46-116); ALT (SGPT) 28 U/L (16-63); AST (SGOT) 14 U/L (15-37); CREATINE KINASE 76 U/L (39-308); MAGNESIUM 2.1 mg/dL (1.8-2.4); TOTAL BILIRUBIN 0.5 mg/dL (0.2-1.0); TOTAL PROTEIN 7.9 g/dL (6.4-8.2)
[2019-03-10] MEDS ORDERED: levETIRAcetam 500 MG TABLET PO ONE (22:00)
[2019-03-10 22:19] LABS: VAL ACID < 3 mcg/mL (50-100)
[2019-03-10] MEDS ORDERED: LEVE500T56 PO (22:19)
[2019-03-10 23:27] VITALS: BP 161/95
--- NOTE | 2019-03-12 08:05 | EKG ---
[facility] [address] [place] [address] Test Date: 2019-03-10 Test Time: 20:40:38 Pat Name: STEFF SCHAEFFER Department: Room: Gender: M Pharmacy Salesperson: : 1985 Requested By: REY GARNER Order Number: [id number] Reading MD: Measurements Intervals [place] Rate: 113 P: -96 CT: 104 QRS: 49 QRSD: 84 T: 39 QT: 302 QTc: 419 Interpretive Statements SINUS TACHYCARDIA NO SPECIFIC ECG ABNORMALITIES RI6.01 No previous ECG available for comparison
== END 2019-03-10 23:22 | disposition home or self-care (01) ==
LOC: ER 18:06
DX: G40.909 Epilepsy, unspecified, not intractable, without status epilepticus (principal); R11.10 Vomiting, unspecified; R32 Unspecified urinary incontinence; F84.0 Autistic disorder; R00.0 Tachycardia, unspecified; F90.9 Attention-deficit hyperactivity disorder, unspecified type; F79 Unspecified intellectual disabilities
CPT/HCPCS: 36415; 70450; 72125; 80053; 80164; 80307; 81001; 82550; 83605; 83735; 85025; 85610; 85730; 93005; 96361; 96372; 96374; 96376; 99285; J2060; J3486; J7030

== ENCOUNTER 2019-05-09 12:41 | Emergency (ER) | payer MEDICARE, MEDICAID ==
[~2019-05-09] VITALS: Ht 177.8 cm; Wt 103.4 kg
[~2019-05-09 12:41] MED LIST changes: +CLON-77 PO; -CLON0.5T11 PO; +LEVE500T56 PO
[2019-05-09 14:03] LABS: BASO # 0.1 x10^3/uL (0.0-0.2); BASO % 1 % (0-3); EOS # 0.1 x10^3/uL (0.0-0.7); EOS % 1 % (0-3); HEMATOCRIT 47.7 % (39.0-53.0); LYMPH # 2.9 x10^3/uL (1.0-4.8); LYMPH % 26 % (24-48); MEAN CORPUSCULAR HEMOGLOBIN 30 pg (25-35); MEAN CORPUSCULAR HGB CONC 34 g/dL (31-37); MEAN CORPUSCULAR VOLUME 90 fL (79-100); MONO # 0.7 x10^3/uL (0.0-1.1); MONO % 7 % (0-9); NEUT # 7.3 x10^3/uL (1.8-7.7); NEUT % 65 % (31-73); PLATELET COUNT 303 x10^3/uL (140-400); RED BLOOD COUNT 5.32 x10^6/uL (4.30-5.70); RED CELL DISTRIBUTION WIDTH 13.4 % (11.5-14.5); WHITE BLOOD COUNT 11.1 x10^3/uL (4.0-11.0)
[2019-05-09 14:17] LABS: BILIRUBIN,URINE NEGATIVE (NEG); CLARITY,URINE CLEAR; COLOR,URINE YELLOW; NITRITE,URINE NEGATIVE (NEG); PH,URINE 6.5; PROTEIN,URINE NEGATIVE (NEG-TRACE); UROBILINOGEN,URINE 0.2 mg/dL (0.2 mg/dL)
[2019-05-09 14:21] LABS: BACTERIA,URINE 0 /HPF (0-FEW); RBC,URINE 0 /HPF (0-2); WBC,URINE 0 /HPF (0-4)
[2019-05-09 14:23] LABS: CALCIUM 9.2 mg/dL (8.5-10.1); CREATININE 1.3 mg/dL (0.7-1.3); GFR 62.8; POTASSIUM 4.9 mmol/L (3.5-5.1)
[2019-05-09 14:30] LABS: ALBUMIN 4.1 g/dL (3.4-5.0); ALBUMIN/GLOBULIN RATIO 1.2 (1.0-1.7); MAGNESIUM 1.9 mg/dL (1.8-2.4); TOTAL BILIRUBIN 0.4 mg/dL (0.2-1.0); TOTAL PROTEIN 7.6 g/dL (6.4-8.2)
--- NOTE | 2019-05-09 15:28 | PHYS DOC ---
Past Medical History Past Medical History: Seizure, Other Additional Past Medical Histor: behavioral disorder, explosive disorder, autism Past Surgical History: No Surgical History Alcohol Use: None Drug Use: None Adult General Chief Complaint Chief Complaint: OTHER COMPLAINTS HPI HPI Patient is a 34 year old [f__sex] who presents with [] Review of Systems Review of Systems Constitutional: Denies fever or chills [] Eyes: Denies change in visual acuity, redness, or eye pain [] HENT: Denies nasal congestion or sore throat [] Respiratory: Denies cough or shortness of breath [] Cardiovascular: No additional information not addressed in HPI [] GI: Denies abdominal pain, nausea, vomiting, bloody stools or diarrhea [] : Denies dysuria or hematuria [] Musculoskeletal: Denies back pain or joint pain [] Integument: Denies rash or skin lesions [] Neurologic: Denies headache, focal weakness or sensory changes [] Endocrine: Denies polyuria or polydipsia [] All other systems were reviewed and found to be within normal limits, except as documented in this note. Allergies Allergies Allergies Coded Allergies Type Severity Reaction Last Updated Verified No Known Drug Allergies 03/26/14 No Physical Exam Physical Exam Constitutional: Well developed, well nourished, no acute distress, non-toxic appearance. [] HENT: Normocephalic, atraumatic, bilateral external ears normal, oropharynx moist, no oral exudates, nose normal. [] Eyes: PERRLA, EOMI, conjunctiva normal, no discharge. [] Neck: Normal range of motion, no tenderness, supple, no stridor. [] Cardiovascular:Heart rate regular rhythm, no murmur [] Lungs & Thorax: Bilateral breath sounds clear to auscultation [] Abdomen: Bowel sounds normal, soft, no tenderness, no masses, no pulsatile masses. [] Skin: Warm, dry, no erythema, no rash. [] Back: No tenderness, no CVA tenderness. [] Extremities: No tenderness, no cyanosis, no clubbing, ROM intact, no edema. [] Neurologic: Alert and oriented X 3, normal motor function, normal sensory function, no focal deficits noted. [] Psychologic: Affect normal, judgement normal, mood normal. [] Current Patient Data Vital Signs Vital Signs Date Time Temp Pulse Resp B/P (MAP) Pulse Ox O2 Delivery O2 Flow Rate FiO2 05/09/19 13:15 99.0 86 16 114/76 (89) 96 Room Air 99.0 Lab Values Laboratory Tests Test 05/09/19 13:52 05/09/19 14:10 White Blood Count 11.1 x10^3/uL (4.0-11.0) H Red Blood Count 5.32 x10^6/uL (4.30-5.70) Hemoglobin 16.0 g/dL (13.0-17.5) Hematocrit 47.7 % (39.0-53.0) Mean Corpuscular Volume 90 fL (79-100) Mean Corpuscular Hemoglobin 30 pg (25-35) Mean Corpuscular Hemoglobin Concent 34 g/dL (31-37) Red Cell Distribution Width 13.4 % (11.5-14.5) Platelet Count 303 x10^3/uL (140-400) Neutrophils (%) (Auto) 65 % (31-73) Lymphocytes (%) (Auto) 26 % (24-48) Monocytes (%) (Auto) 7 % (0-9) Eosinophils (%) (Auto) 1 % (0-3) Basophils (%) (Auto) 1 % (0-3) Neutrophils # (Auto) 7.3 x10^3/uL (1.8-7.7) Lymphocytes # (Auto) 2.9 x10^3/uL (1.0-4.8) Monocytes # (Auto) 0.7 x10^3/uL (0.0-1.1) Eosinophils # (Auto) 0.1 x10^3/uL (0.0-0.7) Basophils # (Auto) 0.1 x10^3/uL (0.0-0.2) Sodium Level 138 mmol/L (136-145) Potassium Level 4.9 mmol/L (3.5-5.1) Chloride Level 103 mmol/L (98-107) Carbon Dioxide Level 26 mmol/L (21-32) Anion Gap 9 (6-14) Blood Urea Nitrogen 18 mg/dL (8-26) Creatinine 1.3 mg/dL (0.7-1.3) Estimated GFR (Cockcroft-Gault) 62.8 BUN/Creatinine Ratio 14 (6-20) Glucose Level 147 mg/dL (70-99) H Calcium Level 9.2 mg/dL (8.5-10.1) Magnesium Level 1.9 mg/dL (1.8-2.4) Total Bilirubin 0.4 mg/dL (0.2-1.0) Aspartate Amino Transferase (AST) 18 U/L (15-37) Alanine Aminotransferase (ALT) 33 U/L (16-63) Alkaline Phosphatase 73 U/L (46-116) Total Protein 7.6 g/dL (6.4-8.2) Albumin 4.1 g/dL (3.4-5.0) Albumin/Globulin Ratio 1.2 (1.0-1.7) Urine Collection Type Unknown Urine Color Yellow Urine Clarity Clear Urine pH 6.5 Urine Specific [place] <=1.005 Urine Protein Negative mg/dL (NEG-TRACE) Urine Glucose (UA) Negative mg/dL (NEG) Urine Ketones (Stick) Negative mg/dL (NEG) Urine Blood Negative (NEG) Urine Nitrite Negative (NEG) Urine Bilirubin Negative (NEG) Urine Urobilinogen Dipstick 0.2 mg/dL (0.2 mg/dL) Urine Leukocyte Esterase Negative (NEG) Urine RBC 0 /HPF (0-2) Urine WBC 0 /HPF (0-4) Urine Bacteria 0 /HPF (0-FEW) Laboratory Tests 05/09/19 13:52 Laboratory Tests 05/09/19 13:52 EKG EKG [] Radiology/Procedures Radiology/Procedures [] Course & Med Decision Making Course & Med Decision Making Pertinent Labs and Imaging studies reviewed. (See chart for details) [] Dragon Disclaimer Dragon Disclaimer This electronic medical record was generated, in whole or in part, using a voice recognition dictation system. Departure Departure Impression: Primary Impression: Behavior concern in adult Disposition: 01 HOME, SELF-CARE Condition: STABLE Referrals: LYNN PACKER MD (PCP) Patient Instructions: Self-Destructive Behavior REY GARNER DO May 09, 2019 15:27
[2019-05-09 15:41] VITALS: BP 106/73
== END 2019-05-09 15:33 | disposition home or self-care (01) ==
LOC: ER 12:41
DX: F91.8 Other conduct disorders (principal); F84.0 Autistic disorder
CPT/HCPCS: 36415; 80053; 80177; 81001; 83735; 85025; 99284